=== PATIENT | male | born 1970 | race Caucasian/White ===

== ENCOUNTER 2018-03-17 08:56 | Inpatient (IN) ==
[2018-03-21] MEDS ORDERED: Senna/Docusate Sodium 8.6/50 MG Tablet ONE (22:33)
[2018-03-22] MEDS ORDERED: Bisacodyl 10 MG Supp RECTAL PRN (00:01)
[2018-03-22] MEDS ORDERED: Sod Chloride 0.9% Inj 1,000 ML IV.CONT PRN (00:01)
[2018-03-22] MEDS ORDERED: Albumin Human 25% Inj 100 ML IV.SIG PRN (00:01)
[2018-03-22] MEDS ORDERED: Gelatin 12 MM/7 MM Topical Foam TOPICAL PRN (00:01)
[2018-03-22] MEDS ORDERED: Acetaminophen 325 MG Tablet PO PRN (00:01)
[2018-03-22] MEDS ORDERED: Sod Chloride 0.9% Inj 1,000 ML OTHER PRN ×2 (00:01)
[2018-03-22] MEDS ORDERED: Heparin 10,000 UNITS/10 ML Vial (for IV use) IV.FLUSH PRN (00:01)
[2018-03-22 07:37] LABS: Activated Partial Thrombo Time 26.1 sec (24.3-30.1); Prothrombin Time 10.4 sec (9.8-11.6)
[2018-03-22 07:47] LABS: Alanine Aminotransferase 378 U/L (12-78); Albumin 1.9 g/dL (3.4-5.0); Anion Gap 12 meq/L (5-15); Aspartate Aminotransferase 447 U/L (15-37); Blood Urea Nitrogen 76 mg/dL (7-18); Calcium 7.8 mg/dL (8.5-10.1); Carbon Dioxide 30.2 meq/L (21.0-32.0); Chloride 95 meq/L (98-107); Glomerular Filtration Rate 5 mL/min (>89); Glucose,Random 101 mg/dL (74-106); Potassium 4.9 meq/L (3.5-5.1); Sodium 137 meq/L (136-145)
[2018-03-22 07:49] LABS: Alkaline Phosphatase 60 U/L (45-117); Total Protein 5.2 g/dL (6.4-8.2)
[2018-03-22 08:19] LABS: Baso # (Auto) 0.1 th/mm3 (0.0-0.2); Baso % (Auto) 0.4 % (0.0-2.0); Eos # (Auto) 0.5 th/mm3 (0.0-0.4); Eos % (Auto) 3.6 % (0.0-4.0); Hematocrit 45.4 % (39.0-51.0); Hemoglobin 15.2 gm/dL (13.0-17.0); Lymph # (Auto) 1.8 th/mm3 (1.0-4.8); Lymph % (Auto) 13.6 % (9.0-44.0); Mean Corpuscular HGB Conc 33.5 % (32.0-36.0); Mean Corpuscular Hemoglobin 29.1 pg (27.0-34.0); Mean Corpuscular Volume 86.7 fL (80.0-100.0); Mean Platelet Volume 8.4 fL (7.0-11.0); Mono # (Auto) 1.3 th/mm3 (0.0-0.9); Neut # (Auto) 9.6 th/mm3 (1.8-7.7); Neut % (Auto) 72.4 % (16.0-70.0); Platelet Count 253 th/mm3 (150-450); Red Blood Count 5.23 mil/mm3 (4.50-5.90); Red Cell Distribution Width 16.1 % (11.6-17.2); White Blood Count 13.2 th/mm3 (4.0-11.0)
[2018-03-22] MEDS: Sodium Bicarbonate 8.4% Inj 100 MEQ in Sodium Chloride 0.45 % Inj 900 ML IV.CONT SCH ×2 (08:35→20:13)
[2018-03-22] MEDS: Calcium Carbonate 500 MG Tablet PO SCH ×2 (09:24→20:11)
[2018-03-22] MEDS: Senna/Docusate Sodium 8.6/50 MG Tablet PO SCH ×2 (09:24→20:11)
--- NOTE | 2018-03-22 12:42 | P.PNIM ---
Subjective Interval history: Patient feels better status post dialysis. He will need further dialysis, but his potassium has corrected with dialysis. Creatinine is still 10. Bilateral lower extremity numbness and lower back pain remain a primary complaint. MRI from 03/17/2018 shows no acute impingement, so etiology is likely related to his renal failure and liver failure and drug abuse. Physical Exam Vital signs: Vital Signs 03/22/18 00:00 03/22/18 04:00 03/22/18 08:00 Temperature 98.1 F 98.1 F 98.1 F Pulse Rate 84 84 81 Respiratory Rate 18 18 22 Blood Pressure 157/82 H 156/87 H 164/87 H Pulse Oximetry 95 95 94 L Intake & Output 03/21/18 03/22/18 03/22/18 18:59 06:59 18:59 Weight 88.4 kg 87.9 kg - Routine HEENT Exam Comments: GENERAL: NAD, A&Ox3 HEAD: Normocephalic. NECK: Supple, trachea midline. No lymphadenopathy. EYES: No scleral icterus. No injection or drainage. CARDIOVASCULAR: Regular rate and rhythm without murmurs, gallops, or rubs. RESPIRATORY: Breath sounds equal bilaterally. No accessory muscle use. GASTROINTESTINAL: Abdomen soft, non-tender, nondistended. MUSCULOSKELETAL: No cyanosis, or edema. SKIN: Warm and dry. NEURO: No focal neurological deficitis. Results - Labs CBC & Chem 7: 03/22/18 06:59 03/22/18 06:59 Labs: Laboratory Results - last 24 hr 03/18/18 03/21/18 03/21/18 07:00 05:20 05:20 WBC 16.0 H RBC 5.43 Hgb 16.0 Hct 47.8 MCV 87.9 MCH 29.5 MCHC 33.5 RDW 16.0 Plt Count 267 MPV 8.3 Neut % (Auto) 79.6 H Lymph % (Auto) 10.4 [place] % (Auto) 8.1 H Eos % (Auto) 1.7 Baso % (Auto) 0.2 Neut # (Auto) 12.8 H Lymph # (Auto) 1.7 [place] # (Auto) 1.3 H Eos # (Auto) 0.3 Baso # (Auto) 0.0 CBC Comment DIFF FINAL WBC Differential Differential Comment PT INR APTT Sodium 132 L Potassium 5.3 H Chloride 93 L Carbon Dioxide 24.9 Anion Gap 14 BUN 79 H D Creatinine 10.14 H* D Estimated GFR 6 L Random Glucose 88 Calcium 7.5 L Magnesium 2.4 Total Bilirubin 0.4 AST 639 H ALT 566 H Alkaline Phosphatase 75 Ammonia Total Creatine Kinase Cancelled 53306 H CK-MB (CK-2) 18.8 H CK-MB (CK-2) % 0.1 Total Protein 5.4 L D Albumin 1.9 L 03/22/18 03/22/18 03/22/18 06:59 06:59 06:59 WBC RBC Hgb Hct MCV MCH MCHC RDW Plt Count MPV Neut % (Auto) Lymph % (Auto) [place] % (Auto) Eos % (Auto) Baso % (Auto) Neut # (Auto) Lymph # (Auto) [place] # (Auto) Eos # (Auto) Baso # (Auto) CBC Comment WBC Differential Differential Comment PT 10.4 INR 1.0 APTT 26.1 Sodium 137 Potassium 4.9 Chloride 95 L Carbon Dioxide 30.2 Anion Gap 12 BUN 76 H Creatinine 10.25 H* Estimated GFR 5 L Random Glucose 101 Calcium 7.8 L Magnesium Total Bilirubin 0.4 AST 447 H ALT 378 H Alkaline Phosphatase 60 Ammonia 30 Total Creatine Kinase CK-MB (CK-2) CK-MB (CK-2) % Total Protein 5.2 L Albumin 1.9 L 03/22/18 06:59 WBC 13.2 H RBC 5.23 Hgb 15.2 Hct 45.4 MCV 86.7 MCH 29.1 MCHC 33.5 RDW 16.1 Plt Count 253 MPV 8.4 Neut % (Auto) 72.4 H Lymph % (Auto) 13.6 [place] % (Auto) 10.0 H Eos % (Auto) 3.6 Baso % (Auto) 0.4 Neut # (Auto) 9.6 H Lymph # (Auto) 1.8 [place] # (Auto) 1.3 H Eos # (Auto) 0.5 H Baso # (Auto) 0.1 CBC Comment WBC Differential . Differential Comment Auto diff final PT INR APTT Sodium Potassium Chloride Carbon Dioxide Anion Gap BUN Creatinine Estimated GFR Random Glucose Calcium Magnesium Total Bilirubin AST ALT Alkaline Phosphatase [place]mon[place] Total Creatine Kinase CK-MB (CK-2) CK-MB (CK-2) % Total Protein Albumin Assessment and Plan - Plan 47-year-old male admitted secondary to acute renal failure and acute liver failure Dialysis has been initiated. Continue dialysis and watch renal function. Continue to monitor liver function which has improved. Continue to monitor kidney function. Acute renal failure Avoid nephrotoxins Continue to monitor renal function Nephrology following HTN suspected Patient declines Coates catheter Bladder scanning twice daily May need Dialysis Toxic encephalopathy/drug overdose Polysubstance abuse Drug abuse may be contributory to the patient's liver and renal failure Encephalopathy has resolved Cessation recommended Transaminitis Hepatitis C Liver failure Follow LFTs Bilateral lower extremity weakness May be related to liver and renal failure May be related to drug abuse MRI of lumbar spine shows no acute pathology to explain symptoms Continue physical therapy DVT prophylaxis SCDs
--- NOTE | 2018-03-22 13:22 | P.PNNP ---
Subjective Interval history: Denies any shortness of breath. Bilateral lower extremity pain in feet. <Olga Villatoro - Last Filed: 03/22/18 13:16> Physical Exam Vital signs: Vital Signs 03/22/18 00:00 03/22/18 04:00 03/22/18 08:00 Temperature 98.1 F 98.1 F 98.1 F Pulse Rate 84 84 81 Respiratory Rate 18 18 22 Blood Pressure 157/82 H 156/87 H 164/87 H Pulse Oximetry 95 95 94 L 03/22/18 12:00 Temperature 98 F Pulse Rate 83 Respiratory Rate 20 Blood Pressure 163/93 H Pulse Oximetry 95 Intake & Output 03/21/18 03/22/18 03/22/18 18:59 06:59 18:59 Weight 88.4 kg 87.9 kg - Constitutional no acute distress - Routine HEENT Exam Head: Present: normocephalic ENT: Present: mucous membranes moist - Routine Neck Exam Present: supple. Absent: JVD - Routine Respiratory Exam Present: CTA bilaterally - Routine Cardiovascular Exam Present: RRR - Routine Abdominal Exam Present: soft, normoactive bowel sounds - Routine Extremities Exam Present: edema, pulses intact. Absent: Brian's sign - Routine Skin Exam Present: intact - Routine Neurological Exam Present: alert, oriented X3 - Detailed Neurological Exam: Coma Scale Eye Opening: Spontaneous <Olga Villatoro - Last Filed: 03/22/18 13:16> Vital signs: Vital Signs 03/22/18 00:00 03/22/18 04:00 03/22/18 08:00 Temperature 98.1 F 98.1 F 98.1 F Pulse Rate 84 84 81 Respiratory Rate 18 18 22 Blood Pressure 157/82 H 156/87 H 164/87 H Pulse Oximetry 95 95 94 L 03/22/18 12:00 Temperature 98 F Pulse Rate 83 Respiratory Rate 20 Blood Pressure 163/93 H Pulse Oximetry 95 Intake & Output 03/21/18 03/22/18 03/22/18 18:59 06:59 18:59 Weight 88.4 kg 87.9 kg <Amira Stewart - Last Filed: 03/22/18 16:43> Assessment and Plan - Assessment (1) Acute kidney injury Code(s): N17.9 - Acute kidney failure, unspecified Status: Acute Plan: Patient has acute renal failure along with liver failure and has not been passing any urine CPKs are elevated Has acute tubular necrosis with Rhabdomyolysis Ultrasound showed echogenic kidneys Creatinine: 2.76 ->4.09->10.14 ->10.25 Continue IVF with rhabdomyolysis Hemodialysis started yesterday tolerated well Hyperkalemia has improved Right IJ vas cath Next hemodialysis planned for tomorrow will remove fluid as tolerated. <Olga Villatoro - Last Filed: 03/22/18 13:16> - Assessment (1) Acute kidney injury Code(s): N17.9 - Acute kidney failure, unspecified Status: Acute - Plan Patient seen and examined, agree with above. HD was started yesterday. Non oliguric, still has elevated Creatinine. HD again in AM. <Amira Stewart - Last Filed: 03/22/18 16:43>
[2018-03-23 07:13] LABS: Baso # (Auto) 0.1 th/mm3 (0.0-0.2); Baso % (Auto) 0.4 % (0.0-2.0); Eos # (Auto) 0.4 th/mm3 (0.0-0.4); Eos % (Auto) 2.5 % (0.0-4.0); Hemoglobin 14.9 gm/dL (13.0-17.0); Lymph # (Auto) 1.7 th/mm3 (1.0-4.8); Lymph % (Auto) 10.6 % (9.0-44.0); Mean Corpuscular HGB Conc 33.8 % (32.0-36.0); Mean Corpuscular Hemoglobin 29.6 pg (27.0-34.0); Mean Corpuscular Volume 87.4 fL (80.0-100.0); Mean Platelet Volume 8.5 fL (7.0-11.0); Mono # (Auto) 1.3 th/mm3 (0.0-0.9); Mono % (Auto) 8.3 % (0.0-8.0); Neut # (Auto) 12.6 th/mm3 (1.8-7.7); Neut % (Auto) 78.2 % (16.0-70.0); Platelet Count 263 th/mm3 (150-450); Red Blood Count 5.03 mil/mm3 (4.50-5.90); Red Cell Distribution Width 16.2 % (11.6-17.2); White Blood Count 16.1 th/mm3 (4.0-11.0)
[2018-03-23 09:12] LABS: Alanine Aminotransferase 339 U/L (12-78); Albumin 1.9 g/dL (3.4-5.0); Alkaline Phosphatase 54 U/L (45-117); Anion Gap 12 meq/L (5-15); Aspartate Aminotransferase 431 U/L (15-37); Blood Urea Nitrogen 94 mg/dL (7-18); Calcium 8.3 mg/dL (8.5-10.1); Carbon Dioxide 28.8 meq/L (21.0-32.0); Chloride 95 meq/L (98-107); Glomerular Filtration Rate 5 mL/min (>89); Glucose,Random 88 mg/dL (74-106); Potassium 5.7 meq/L (3.5-5.1); Sodium 136 meq/L (136-145); Total Protein 5.4 g/dL (6.4-8.2)
--- NOTE | 2018-03-23 11:51 | P.PNIM ---
Subjective Interval history: No new complaints from the patient. Creatinine has increased to 11.7. Potassium is up at 5.7. Liver function continues to improve. Physical Exam Vital signs: Vital Signs 03/22/18 12:00 03/22/18 16:00 03/22/18 20:00 Temperature 98 F 99.1 F 98.4 F Pulse Rate 83 81 94 H Respiratory Rate 20 20 18 Blood Pressure 163/93 H 174/88 H 162/87 H Pulse Oximetry 95 95 95 03/23/18 00:00 03/23/18 04:00 03/23/18 08:00 Temperature 98.0 F 97.8 F 97.3 F L Pulse Rate 80 82 79 Respiratory Rate 16 18 19 Blood Pressure 164/83 H 170/80 H 153/78 H Pulse Oximetry 95 95 95 Intake & Output 03/22/18 03/23/18 03/23/18 18:59 06:59 18:59 Intake Total 50 / 50 480 / 480 Output Total 100 / 100 Balance 50 / 50 380 / 380 Weight 88 kg Intake: Oral 480 / 480 Other 50 / 50 Output: Urine Amount (Catheter) 100 / 100 Indwelling Urethral Catheter 100 / 100 Other: Other Intake Source Saline Solution - Routine HEENT Exam Comments: GENERAL: NAD, A&Ox3 HEAD: Normocephalic. NECK: Supple, trachea midline. No lymphadenopathy. EYES: No scleral icterus. No injection or drainage. CARDIOVASCULAR: Regular rate and rhythm without murmurs, gallops, or rubs. RESPIRATORY: Breath sounds equal bilaterally. No accessory muscle use. GASTROINTESTINAL: Abdomen soft, non-tender, nondistended. MUSCULOSKELETAL: No cyanosis, or edema. SKIN: Warm and dry. NEURO: Bilateral lower extremity focal neurological deficitis including numbness and weakness. - Urinary Catheter Management Indwelling Urethral Catheter Cath placed during this visit: yes Urethral indwelling: No Reason for continuing: Not indwelling catheter Insertion date: 03/22/18 Insertion time: 00:00 Results - Labs CBC & Chem 7: 03/23/18 05:46 03/23/18 05:46 Laboratory Results - last 24 hr 03/23/18 03/23/18 05:46 05:46 WBC 16.1 H RBC 5.03 Hgb 14.9 Hct 44.0 MCV 87.4 MCH 29.6 MCHC 33.8 RDW 16.2 Plt Count 263 MPV 8.5 Neut % (Auto) 78.2 H Lymph % (Auto) 10.6 [place] % (Auto) 8.3 H Eos % (Auto) 2.5 Baso % (Auto) 0.4 Neut # (Auto) 12.6 H Lymph # (Auto) 1.7 [place] # (Auto) 1.3 H Eos # (Auto) 0.4 Baso # (Auto) 0.1 WBC Differential . Differential Comment Auto diff final Sodium 136 Potassium 5.7 H D Chloride 95 L Carbon Dioxide 28.8 Anion Gap 12 BUN 94 H Creatinine 11.70 H* D Estimated GFR 5 L Random Glucose 88 Calcium 8.3 L Total Bilirubin 0.4 AST 431 H ALT 339 H Alkaline Phosphatase 54 Total Protein 5.4 L Albumin 1.9 L Assessment and Plan - Plan 47-year-old male admitted secondary to acute renal failure and acute liver failure Dialysis to continue. Monitor renal function. Monitor potassium levels. Labs ordered for further monitoring. Continue to monitor liver function which has improved. Continue to monitor kidney function. Acute renal failure Avoid nephrotoxins Continue to monitor renal function Nephrology following HTN suspected Patient declines Coates catheter Bladder scanning twice daily May need Dialysis Toxic encephalopathy/drug overdose Polysubstance abuse Drug abuse may be contributory to the patient's liver and renal failure Encephalopathy has resolved Cessation recommended Transaminitis Hepatitis C Liver failure Improving through time Follow LFTs Bilateral lower extremity weakness May be related to liver and renal failure May be related to drug abuse MRI of lumbar spine shows no acute pathology to explain symptoms Continue physical therapy DVT prophylaxis SCDs
--- NOTE | 2018-03-23 12:14 | P.PNNP ---
Subjective Interval history: Complaining of neuropathy in feet. Creatinine is elevated at 11.7 and potassium of 5.7. Seen during hemodialysis. <Olga Villatoro - Last Filed: 03/23/18 12:08> Physical Exam Vital signs: Vital Signs 03/22/18 16:00 03/22/18 20:00 03/23/18 00:00 Temperature 99.1 F 98.4 F 98.0 F Pulse Rate 81 94 H 80 Respiratory Rate 20 18 16 Blood Pressure 174/88 H 162/87 H 164/83 H Pulse Oximetry 95 95 95 03/23/18 04:00 03/23/18 08:00 Temperature 97.8 F 97.3 F L Pulse Rate 82 79 Respiratory Rate 18 19 Blood Pressure 170/80 H 153/78 H Pulse Oximetry 95 95 Intake & Output 03/22/18 03/23/18 03/23/18 18:59 06:59 18:59 Intake Total 50 / 50 480 / 480 Output Total 100 / 100 Balance 50 / 50 380 / 380 Weight 88 kg Intake: Oral 480 / 480 Other 50 / 50 Output: Urine Amount (Catheter) 100 / 100 Indwelling Urethral Catheter 100 / 100 Other: Other Intake Source Saline Solution - Constitutional no acute distress - Routine HEENT Exam Head: Present: normocephalic - Routine Neck Exam Present: supple. Absent: JVD - Routine Respiratory Exam Present: decreased breath sounds. Absent: rales, rhonchi - Routine Cardiovascular Exam Present: RRR - Routine Abdominal Exam Present: soft, normoactive bowel sounds - Routine Extremities Exam Present: edema - Routine Skin Exam Present: intact - Routine Neurological Exam Present: alert, oriented X3 - Detailed Neurological Exam: Coma Scale Eye Opening: Spontaneous - Routine Psychiatric Exam Present: normal affect, cooperative - Urinary Catheter Management Indwelling Urethral Catheter Cath placed during this visit: yes Urethral indwelling: No Insertion date: 03/22/18 Insertion time: 00:00 <Olga Villatoro - Last Filed: 03/23/18 12:08> Vital signs: Vital Signs 03/23/18 00:00 03/23/18 04:00 03/23/18 08:00 Temperature 98.0 F 97.8 F 97.8 F Pulse Rate 80 82 93 H Respiratory Rate 16 18 19 Blood Pressure 164/83 H 170/80 H 168/88 H Pulse Oximetry 95 95 94 L 03/23/18 12:00 03/23/18 16:00 Temperature 97.2 F L 97.1 F L Pulse Rate 78 80 Respiratory Rate 18 18 Blood Pressure 142/76 H 140/74 Pulse Oximetry 96 96 Intake & Output 03/23/18 03/23/18 03/24/18 06:59 18:59 06:59 Intake Total 480 / 480 200 / 200 Output Total 100 / 100 Balance 380 / 380 200 / 200 Weight 88 kg Intake: Oral 480 / 480 Other 200 / 200 Output: Urine Amount (Catheter) 100 / 100 Indwelling Urethral Catheter 100 / 100 - Urinary Catheter Management Indwelling Urethral Catheter Cath placed during this visit: no <Amira Stewart - Last Filed: 03/23/18 22:23> Assessment and Plan - Assessment (1) Acute kidney injury Code(s): N17.9 - Acute kidney failure, unspecified Status: Acute Plan: Patient has acute renal failure along with liver failure and has not been passing any urine CPKs are elevated Has acute tubular necrosis with Rhabdomyolysis Ultrasound showed echogenic kidneys Creatinine: 2.76 ->4.09->10.14 ->10.25 ->11.7 Urinary output has decreased and at 100ml/24 hours Continue IVF with rhabdomyolysis Hemodialysis started on 03/21 Seen during hemodialysis will remove fluid as tolerated Will order gabapentin for neuropathy Hypertensive will add hydralazine . - Plan . <Olga Villatoro - Last Filed: 03/23/18 12:08> - Assessment (1) Acute kidney injury Code(s): N17.9 - Acute kidney failure, unspecified Status: Acute - Attending Attestation Patient seen and examined, agree with above. Hydralazine added for the BP. Watch for renal recovery. <Amira Stewart - Last Filed: 03/23/18 22:23>
[2018-03-23] MEDS: Calcium Carbonate 500 MG Tablet PO SCH ×2 (13:27→23:51)
[2018-03-23] MEDS: Senna/Docusate Sodium 8.6/50 MG Tablet PO SCH ×2 (15:15→23:53)
[2018-03-23] MEDS: Gabapentin 100 MG Capsule PO SCH ×2 (17:38→17:39)
[2018-03-23] MEDS: hydrALAZINE 25 MG Tablet PO SCH ×2 (17:38→17:39)
[2018-03-23] MEDS: Sodium Bicarbonate 8.4% Inj 100 MEQ in Sodium Chloride 0.45 % Inj 900 ML IV.CONT SCH (23:46)
[2018-03-24] MEDS: Calcium Carbonate 500 MG Tablet PO SCH ×2 (08:21→21:15)
[2018-03-24] MEDS: hydrALAZINE 25 MG Tablet PO SCH ×3 (08:21→18:29)
[2018-03-24] MEDS: Gabapentin 100 MG Capsule PO SCH ×3 (08:21→18:29)
[2018-03-24] MEDS: Senna/Docusate Sodium 8.6/50 MG Tablet PO SCH ×2 (08:22→21:11)
[2018-03-24 10:05] LABS: Anion Gap 12 meq/L (5-15); Aspartate Aminotransferase 290 U/L (15-37); Blood Urea Nitrogen 86 mg/dL (7-18); Calcium 8.7 mg/dL (8.5-10.1); Carbon Dioxide 28.6 meq/L (21.0-32.0); Chloride 95 meq/L (98-107); Glomerular Filtration Rate 5 mL/min (>89); Glucose,Random 86 mg/dL (74-106); Potassium 5.6 meq/L (3.5-5.1); Sodium 136 meq/L (136-145)
[2018-03-24 10:06] LABS: Alanine Aminotransferase 273 U/L (12-78)
[2018-03-24 10:09] LABS: Alkaline Phosphatase 47 U/L (45-117); Total Protein 5.3 g/dL (6.4-8.2)
[2018-03-24 10:51] LABS: Baso % (Auto) 0.3 % (0.0-2.0); Eos # (Auto) 0.6 th/mm3 (0.0-0.4); Eos % (Auto) 4.2 % (0.0-4.0); Hematocrit 41.1 % (39.0-51.0); Hemoglobin 13.7 gm/dL (13.0-17.0); Lymph # (Auto) 1.9 th/mm3 (1.0-4.8); Mean Corpuscular HGB Conc 33.4 % (32.0-36.0); Mean Corpuscular Hemoglobin 29.3 pg (27.0-34.0); Mean Corpuscular Volume 87.8 fL (80.0-100.0); Mean Platelet Volume 8.5 fL (7.0-11.0); Mono # (Auto) 1.2 th/mm3 (0.0-0.9); Neut % (Auto) 72.5 % (16.0-70.0); Platelet Count 239 th/mm3 (150-450); Red Blood Count 4.68 mil/mm3 (4.50-5.90); White Blood Count 13.8 th/mm3 (4.0-11.0)
[2018-03-24] MEDS ORDERED: Sodium Polystyrene Sulfonate/Sorbitol Liq 15 GM/60 ML UDC PO ONE (11:30)
--- NOTE | 2018-03-24 12:51 | P.PN ---
Subjective Interval history: Follow up MARY and acute liver failure. Patient seen and examined, lying in bed in [place]. Does complain of overall generalized weakness. Eating well with no acute events overnight,. no abdominal pain or nausea/vomiting. Afebrile. VSS. Checking CPK level today. Physical Exam Vital signs: Vital Signs 03/23/18 16:00 03/23/18 20:00 03/23/18 23:52 Temperature 97.1 F L Pulse Rate 80 Respiratory Rate 18 18 18 Blood Pressure 140/74 Pulse Oximetry 96 03/24/18 00:00 03/24/18 04:00 03/24/18 05:08 Temperature 97.1 F L 97.5 F L Pulse Rate 78 87 Respiratory Rate 16 16 18 Blood Pressure 162/84 H 173/87 H Pulse Oximetry 95 94 L 03/24/18 08:00 Temperature 97.3 F L Pulse Rate 78 Respiratory Rate 18 Blood Pressure 155/81 H Pulse Oximetry 95 Intake & Output 03/23/18 03/24/18 03/24/18 18:59 06:59 18:59 Intake Total 1200 / 1200 960 / 960 Output Total 50 / 50 Balance 1200 / 1200 910 / 910 Weight 89.2 kg Intake: IV 1000 / 1000 Sodium Bicarbonate 8.4% Inj 100 1000 / 1000 MEQ In 1/2 Normal Saline Inj 900 ML @ 50 mls/hr IV.CONT . Q20H LOWELL Rx#:[id number] Oral 960 / 960 Other 200 / 200 Output: Urine Amount (Catheter) 50 / 50 Indwelling Urethral Catheter 50 / 50 Other: Date of Last Bowel Movement 03/23/18 # Bowel Movements 1 - Constitutional no acute distress - Routine HEENT Exam Head: Present: normocephalic Eye: Present: EOMI, PERRL ENT: Present: mucous membranes moist - Routine Neck Exam Present: supple, full ROM - Routine Cardiovascular Exam Present: RRR - Routine Abdominal Exam Present: soft, normoactive bowel sounds - Routine Skin Exam Present: intact - Routine Neurological Exam Present: alert, oriented X3 - Detailed Neurological Exam: Coma Scale Eye Opening: Spontaneous - Routine Psychiatric Exam Present: normal affect - Urinary Catheter Management Indwelling Urethral Catheter Cath placed during this visit: yes Urethral indwelling: No Reason for continuing: Acute urinary retention Insertion date: 03/22/18 Insertion time: 00:00 Results - Labs CBC & Chem 7: 03/24/18 08:29 03/24/18 08:29 Laboratory Results - last 24 hr 03/24/18 03/24/18 08:29 08:29 WBC 13.8 H RBC 4.68 Hgb 13.7 Hct 41.1 MCV 87.8 MCH 29.3 MCHC 33.4 RDW 16.0 Plt Count 239 MPV 8.5 Neut % (Auto) 72.5 H Lymph % (Auto) 14.0 [place] % (Auto) 9.0 H Eos % (Auto) 4.2 H Baso % (Auto) 0.3 Neut # (Auto) 10.0 H Lymph # (Auto) 1.9 [place] # (Auto) 1.2 H Eos # (Auto) 0.6 H Baso # (Auto) 0.0 WBC Differential . Differential Comment Auto diff final Sodium 136 Potassium 5.6 H Chloride 95 L Carbon Dioxide 28.6 Anion Gap 12 BUN 86 H Creatinine 10.79 H* Estimated GFR 5 L Random Glucose 86 Calcium 8.7 Total Bilirubin 0.4 AST 290 H ALT 273 H Alkaline Phosphatase 47 Total Protein 5.3 L Albumin 2.0 L Assessment and Plan - Plan 47-year-old male admitted secondary to acute renal failure and acute liver failure Dialysis to continue,. M/W/F. Nephrology following. Monitor renal function. Monitor potassium levels, elevated today, given Kayexalate. Continue to monitor liver function which has improved. Acute renal failure Avoid nephrotoxins Continue to monitor renal function Nephrology following HTN suspected Continue Coates catheter, attempt void trial in the next couple days depending on renal function. Toxic encephalopathy/drug overdose Polysubstance abuse Drug abuse may be contributory to the patient's liver and renal failure Encephalopathy has resolved Cessation recommended Transaminitis Hepatitis C Liver failure Improving through time Follow LFTs Bilateral lower extremity weakness May be related to liver and renal failure May be related to drug abuse MRI of lumbar spine shows no acute pathology to explain symptoms Continue physical therapy DVT prophylaxis SCDs
--- NOTE | 2018-03-24 14:49 | P.PN ---
Subjective Interval history: Patient is alert, no SOB, has heaviness in legs. Physical Exam Vital signs: Vital Signs 03/23/18 16:00 03/23/18 20:00 03/23/18 23:52 Temperature 97.1 F L Pulse Rate 80 Respiratory Rate 18 18 18 Blood Pressure 140/74 Pulse Oximetry 96 03/24/18 00:00 03/24/18 04:00 03/24/18 05:08 Temperature 97.1 F L 97.5 F L Pulse Rate 78 87 Respiratory Rate 16 16 18 Blood Pressure 162/84 H 173/87 H Pulse Oximetry 95 94 L 03/24/18 08:00 03/24/18 12:00 Temperature 97.3 F L 97.8 F Pulse Rate 78 88 Respiratory Rate 18 18 Blood Pressure 155/81 H 183/92 H Pulse Oximetry 95 95 Intake & Output 03/23/18 03/24/18 03/24/18 18:59 06:59 18:59 Intake Total 1200 / 1200 960 / 960 Output Total 50 / 50 Balance 1200 / 1200 910 / 910 Weight 89.2 kg Intake: IV 1000 / 1000 Sodium Bicarbonate 8.4% Inj 100 1000 / 1000 MEQ In 1/2 Normal Saline Inj 900 ML @ 50 mls/hr IV.CONT . Q20H LOWELL Rx#:[id number] Oral 960 / 960 Other 200 / 200 Output: Urine Amount (Catheter) 50 / 50 Indwelling Urethral Catheter 50 / 50 Other: Date of Last Bowel Movement 03/23/18 # Bowel Movements 1 Narrative: Patient is alert, no SOB, has increase leg swelling. - Constitutional no acute distress - Routine HEENT Exam Head: Present: normocephalic - Routine Neck Exam Present: supple - Routine Respiratory Exam Present: decreased breath sounds, CTA bilaterally, rhonchi - Routine Cardiovascular Exam Present: S1, S2 - Routine Abdominal Exam Present: soft, normoactive bowel sounds, distended - Routine Extremities Exam Present: edema - Routine Neurological Exam Present: alert, oriented X3 - Urinary Catheter Management Indwelling Urethral Catheter Cath placed during this visit: yes Urethral indwelling: No Reason for continuing: Acute urinary retention Insertion date: 03/22/18 Insertion time: 00:00 Results - Labs CBC & Chem 7: 03/24/18 08:29 03/24/18 08:29 Laboratory Results - last 24 hr 03/24/18 03/24/18 08:29 08:29 WBC 13.8 H RBC 4.68 Hgb 13.7 Hct 41.1 MCV 87.8 MCH 29.3 MCHC 33.4 RDW 16.0 Plt Count 239 MPV 8.5 Neut % (Auto) 72.5 H Lymph % (Auto) 14.0 [place] % (Auto) 9.0 H Eos % (Auto) 4.2 H Baso % (Auto) 0.3 Neut # (Auto) 10.0 H Lymph # (Auto) 1.9 [place] # (Auto) 1.2 H Eos # (Auto) 0.6 H Baso # (Auto) 0.0 WBC Differential . Differential Comment Auto diff final Sodium 136 Potassium 5.6 H Chloride 95 L Carbon Dioxide 28.6 Anion Gap 12 BUN 86 H Creatinine 10.79 H* Estimated GFR 5 L Random Glucose 86 Calcium 8.7 Total Bilirubin 0.4 AST 290 H ALT 273 H Alkaline Phosphatase 47 Total Protein 5.3 L Albumin 2.0 L Assessment and Plan - Assessment (1) Acute kidney injury Code(s): N17.9 - Acute kidney failure, unspecified Status: Acute - Attending Attestation 1. Acute Kidney injury, with possible Chronic kidney disease. Patient has acute renal failure along with liver failure and has not been passing any urine CPKs are elevated Has acute tubular necrosis with Rhabdomyolysis Ultrasound showed echogenic kidneys Creatinine: 2.76 ->4.09->10.14 ->10.25 ->11.7 Urinary output has decreased and at 100ml/24 hours Continue IVF with rhabdomyolysis Hemodialysis started on 03/21 On gabapentin for neuropathy. Send serology. No improvement in renal function. HD will be in AM. Kayexalate given. Hypertension. On hydralazine, will follow.
[2018-03-24 23:03] LABS: Creatine Kinase MB 3.2 ng/mL (0.5-3.6)
[2018-03-25 08:32] LABS: Bacteria,Urine Occasional /hpf; Bilirubin,Urine Negative (Negative); Clarity,Urine Hazy (Clear); Color,Urine Yellow (Yellw/Straw); Glucose,Urine (UA) 50 mg/dL (Negative); Leukocyte Esterase,Urine Large (Negative); Nitrite,Urine Negative (Negative); Specific Gravity,Urine 1.009 (1.002-1.035)
[2018-03-25 11:24] LABS: Complement C3 125 mg/dL (90-180)
[2018-03-25] MEDS: Heparin 10,000 UNITS/10 ML Vial (for IV use) OTHER PRN (11:45)
[2018-03-25] MEDS: hydrALAZINE 25 MG Tablet PO SCH ×2 (13:16→18:29)
[2018-03-25] MEDS: Gabapentin 100 MG Capsule PO SCH ×3 (13:16→18:28)
[2018-03-25] MEDS: Senna/Docusate Sodium 8.6/50 MG Tablet PO SCH ×2 (13:16→22:28)
[2018-03-25] MEDS: Calcium Carbonate 500 MG Tablet PO SCH ×2 (13:17→22:27)
--- NOTE | 2018-03-25 14:29 | P.PN ---
Subjective Interval history: Patient is alert, complaining of generalized body pain. Physical Exam Vital signs: Vital Signs 03/24/18 16:00 03/24/18 21:09 03/25/18 00:00 Temperature 97.2 F L 98.8 F 98 F Pulse Rate 82 83 Respiratory Rate 18 16 19 Blood Pressure 164/88 H 168/81 H 162/69 H Pulse Oximetry 96 98 94 L 03/25/18 05:54 Temperature 97.8 F Pulse Rate 78 Respiratory Rate 18 Blood Pressure 132/72 Pulse Oximetry Intake & Output 03/24/18 03/25/18 03/25/18 18:59 06:59 18:59 Intake Total 480 / 480 1000 / 1000 Output Total 50 / 50 300 / 300 3000 / 3000 Balance 430 / 430 700 / 700 -3000 / -3000 Weight 92.7 kg Intake: IV 1000 / 1000 Sodium Bicarbonate 8.4% Inj 100 1000 / 1000 MEQ In 1/2 Normal Saline Inj 900 ML @ 50 mls/hr IV.CONT . Q20H LOWELL Rx#:[id number] Oral 480 / 480 Output: Urine 50 / 50 Hemodialysis Amount 3000 / 3000 Urine Amount (Catheter) 300 / 300 Indwelling Urethral Catheter 300 / 300 Other: # Bowel Movements 2 - Constitutional no acute distress - Routine HEENT Exam Head: Present: normocephalic - Routine Neck Exam Present: supple - Routine Cardiovascular Exam Present: RRR, S1, S2 - Routine Abdominal Exam Present: soft - Routine Extremities Exam Present: edema - Routine Neurological Exam Present: alert, oriented X3 - Detailed Neurological Exam: Coma Scale Verbal Response: Oriented - Urinary Catheter Management Indwelling Urethral Catheter Cath placed during this visit: yes Urethral indwelling: No Reason for continuing: Acute urinary retention Insertion date: 03/22/18 Insertion time: 00:00 Results - Labs CBC & Chem 7: 03/24/18 08:29 03/24/18 08:29 Laboratory Results - last 24 hr 03/24/18 03/24/18 03/24/18 18:35 18:35 21:02 Total Creatine Kinase 7705 H CK-MB (CK-2) 3.2 CK-MB (CK-2) % 0.0 Urine Color Yellow Urine Clarity Hazy H Urine pH 8.0 Ur Specific [place] 1.009 Urine Protein 100 H Urine Glucose (UA) 50 Urine Ketones Negative Urine Occult Blood Large H Urine Nitrate Negative Urine Bilirubin Negative Urine Urobilinogen Less than 2 Ur Leukocyte Esterase Large H Urine RBC 37 H Urine WBC 14 H Urine Bacteria Occasional H Micro UA Comment Cath Urine Eosinophils None seen Complement C3 Complement C4 03/24/18 21:02 Total Creatine Kinase CK-MB (CK-2) CK-MB (CK-2) % Urine Color Urine Clarity Urine pH Ur Specific [place] Urine Protein Urine Glucose (UA) Urine Ketones Urine Occult Blood Urine Nitrate Urine Bilirubin Urine Urobilinogen Ur Leukocyte Esterase Urine RBC Urine WBC Urine Bacteria Micro UA Comment Urine Eosinophils Complement C3 125 Complement C4 20 Assessment and Plan - Assessment (1) Acute kidney injury Code(s): N17.9 - Acute kidney failure, unspecified Status: Acute - Plan 1. Acute Kidney injury, with possible Chronic kidney disease. Patient has acute renal failure along with liver failure and has not been passing any urine CPKs are elevated Has acute tubular necrosis with Rhabdomyolysis Ultrasound showed echogenic kidneys Creatinine: 2.76 ->4.09->10.14 ->10.25 ->11.7 Urinary output is low. Continue IVF with rhabdomyolysis Hemodialysis started on 03/21 On gabapentin for neuropathy. Send serology. No improvement in renal function. HD done in AM. Hypertension. On hydralazine, will follow.
--- NOTE | 2018-03-25 16:11 | P.PN ---
Subjective Interval history: Follow-up acute renal injury requiring hemodialysis March 25, 2018-patient seen and examined. He had hemodialysis today. Complains of generalized pain to his bilateral lower extremities and requesting some adjustment in his narcotics. Physical Exam Vital signs: Vital Signs 03/24/18 21:09 03/25/18 00:00 03/25/18 05:54 Temperature 98.8 F 98 F 97.8 F Pulse Rate 83 78 Respiratory Rate 16 19 18 Blood Pressure 168/81 H 162/69 H 132/72 Pulse Oximetry 98 94 L Intake & Output 03/24/18 03/25/18 03/25/18 18:59 06:59 18:59 Intake Total 480 / 480 1000 / 1000 Output Total 50 / 50 300 / 300 3000 / 3000 Balance 430 / 430 700 / 700 -3000 / -3000 Weight 92.7 kg Intake: IV 1000 / 1000 Sodium Bicarbonate 8.4% Inj 100 1000 / 1000 MEQ In 1/2 Normal Saline Inj 900 ML @ 50 mls/hr IV.CONT . Q20H [facility] Rx#:[id number] Oral 480 / 480 Output: Urine 50 / 50 Hemodialysis Amount 3000 / 3000 Urine Amount (Catheter) 300 / 300 Indwelling Urethral Catheter 300 / 300 Other: # Bowel Movements 2 Narrative: GENERAL: NAD SKIN: Warm and dry. HEAD: Normocephalic. EYES: No scleral icterus. No injection or drainage. NECK: Supple, trachea midline. No JVD or lymphadenopathy. CARDIOVASCULAR: Regular rate and rhythm without murmurs, gallops, or rubs. RESPIRATORY: Breath sounds equal bilaterally. No accessory muscle use. GASTROINTESTINAL: Abdomen soft, non-tender, nondistended. MUSCULOSKELETAL: No cyanosis, or edema. BACK: Nontender without obvious deformity. No CVA tenderness. - Urinary Catheter Management Indwelling Urethral Catheter Cath placed during this visit: yes Urethral indwelling: No Reason for continuing: Acute urinary retention Insertion date: 03/22/18 Insertion time: 00:00 Results - Labs CBC & Chem 7: 03/24/18 08:29 03/24/18 08:29 Laboratory Results - last 24 hr 03/24/18 03/24/18 03/24/18 18:35 18:35 21:02 Total Creatine Kinase 7705 H CK-MB (CK-2) 3.2 CK-MB (CK-2) % 0.0 Urine Color Yellow Urine Clarity Hazy H Urine pH 8.0 Ur Specific Henry 1.009 Urine Protein 100 H Urine Glucose (UA) 50 Urine Ketones Negative Urine Occult Blood Large H Urine Nitrate Negative Urine Bilirubin Negative Urine Urobilinogen Less than 2 Ur Leukocyte Esterase Large H Urine RBC 37 H Urine WBC 14 H Urine Bacteria Occasional H Micro UA Comment Cath Urine Eosinophils None seen Complement C3 Complement C4 03/24/18 21:02 Total Creatine Kinase CK-MB (CK-2) CK-MB (CK-2) % Urine Color Urine Clarity Urine pH Ur Specific Henry Urine Protein Urine Glucose (UA) Urine Ketones Urine Occult Blood Urine Nitrate Urine Bilirubin Urine Urobilinogen Ur Leukocyte Esterase Urine RBC Urine WBC Urine Bacteria Micro UA Comment Urine Eosinophils Complement C3 125 Complement C4 20 Assessment and Plan - Plan 47-year-old male admitted secondary to acute renal failure and acute liver failure Dialysis to continue,. M/W/F. Nephrology following. Acute renal failure Avoid nephrotoxins Continue to monitor renal function Nephrology ff Toxic encephalopathy/drug overdose-resolved Polysubstance abuse Cessation recommended Transaminitis Hepatitis C Liver failure Improving through time Follow LFTs Bilateral lower extremity weakness MRI of lumbar spine shows no acute pathology to explain symptoms Continue physical therapy DVT prophylaxis SCDs
[2018-03-25] MEDS: Sodium Bicarbonate 8.4% Inj 100 MEQ in Sodium Chloride 0.45 % Inj 900 ML IV.CONT SCH ×3 (22:30)
[2018-03-26] MEDS: Sodium Bicarbonate 8.4% Inj 100 MEQ in Sodium Chloride 0.45 % Inj 900 ML IV.CONT SCH (05:31)
[2018-03-26] MEDS: hydrALAZINE 25 MG Tablet PO SCH ×3 (10:18→17:31)
[2018-03-26] MEDS: Calcium Carbonate 500 MG Tablet PO SCH ×2 (10:18→23:18)
[2018-03-26] MEDS: Senna/Docusate Sodium 8.6/50 MG Tablet PO SCH ×2 (10:19→23:20)
[2018-03-26] MEDS: Gabapentin 100 MG Capsule PO SCH ×3 (10:20→17:31)
--- NOTE | 2018-03-26 11:33 | P.PN ---
Subjective Interval history: Follow-up acute renal injury requiring hemodialysis March 25, 2018-patient seen and examined. He had hemodialysis today. Complains of generalized pain to his bilateral lower extremities and requesting some adjustment in his narcotics. March 26, 2018-patient seen and examined, states he still has bilateral lower extremity pain otherwise no other issues and afebrile. Physical Exam Vital signs: Vital Signs 03/25/18 12:00 03/25/18 16:00 03/25/18 18:19 Temperature 98.9 F 98.2 F Pulse Rate 91 H 74 Respiratory Rate 20 20 Blood Pressure 169/86 H 183/86 H Pulse Oximetry 92 L 95 94 L 03/25/18 18:28 03/25/18 20:00 03/26/18 00:00 Temperature 97.9 F 98.1 F Pulse Rate 74 75 Respiratory Rate 16 16 16 Blood Pressure 143/96 H 145/69 H Pulse Oximetry 95 91 L 03/26/18 04:00 03/26/18 08:00 Temperature 98 F 97.6 F Pulse Rate 79 81 Respiratory Rate 16 17 Blood Pressure 165/75 H 108/60 Pulse Oximetry 91 L 93 L Intake & Output 03/25/18 03/26/18 03/26/18 18:59 06:59 18:59 Intake Total 1830 / 1830 Output Total 3000 / 3000 100 / 100 Balance -3000 / -3000 1730 / 1730 Weight 93.7 kg Intake: IV 1000 / 1000 Sodium Bicarbonate 8.4% Inj 100 1000 / 1000 MEQ In 1/2 Normal Saline Inj 900 ML @ 50 mls/hr IV.CONT . Q20H [facility] Rx#:[id number] Oral 830 / 830 Output: Urine 100 / 100 Hemodialysis Amount 3000 / 3000 Other: # Voids 2 Date of Last Bowel Movement 03/25/18 # Bowel Movements 1 1 Narrative: GENERAL: NAD SKIN: Warm and dry. HEAD: Normocephalic. EYES: No scleral icterus. No injection or drainage. NECK: Supple, trachea midline. No JVD or lymphadenopathy. CARDIOVASCULAR: Regular rate and rhythm without murmurs, gallops, or rubs. RESPIRATORY: Breath sounds equal bilaterally. No accessory muscle use. GASTROINTESTINAL: Abdomen soft, non-tender, nondistended. MUSCULOSKELETAL: No cyanosis, or edema. BACK: Nontender without obvious deformity. No CVA tenderness. - Urinary Catheter Management Indwelling Urethral Catheter Cath placed during this visit: yes Urethral indwelling: No Reason for continuing: Hourly intake/output Insertion date: 03/22/18 Insertion time: 00:00 Results - Labs CBC & Chem 7: 03/24/18 08:29 03/24/18 08:29 Assessment and Plan - Plan 47-year-old male admitted secondary to acute renal failure and acute liver failure Dialysis to continue,. M/W/F. Nephrology following. Acute renal failure Avoid nephrotoxins Continue to monitor renal function Nephrology ff Toxic encephalopathy/drug overdose-resolved Polysubstance abuse Cessation recommended Transaminitis Hepatitis C Liver failure Follow LFTs Bilateral lower extremity weakness MRI of lumbar spine shows no acute pathology to explain symptoms Elevated CK 2/2 rhabdomyolysis, however due to patient's current diagnosis of acute renal failure requiring hemodialysis, unable to provide IV fluid hydration Continue physical therapy DVT prophylaxis SCDs
--- NOTE | 2018-03-26 13:53 | P.PNNP ---
Subjective Interval history: Up out of bed in chair. Reported that he walked today and is now very tired. No new labs today. Pain in feet region. <Olga Villatoro - Last Filed: 03/26/18 13:46> Physical Exam Vital signs: Vital Signs 03/25/18 16:00 03/25/18 18:19 03/25/18 18:28 Temperature 98.2 F Pulse Rate 74 Respiratory Rate 20 16 Blood Pressure 183/86 H Pulse Oximetry 95 94 L 03/25/18 20:00 03/26/18 00:00 03/26/18 04:00 Temperature 97.9 F 98.1 F 98 F Pulse Rate 74 75 79 Respiratory Rate 16 16 16 Blood Pressure 143/96 H 145/69 H 165/75 H Pulse Oximetry 95 91 L 91 L 03/26/18 08:00 03/26/18 12:00 Temperature 97.6 F 98.3 F Pulse Rate 81 86 Respiratory Rate 17 17 Blood Pressure 108/60 152/82 H Pulse Oximetry 93 L 92 L Intake & Output 03/25/18 03/26/18 03/26/18 18:59 06:59 18:59 Intake Total 1830 / 1830 Output Total 3000 / 3000 100 / 100 Balance -3000 / -3000 1730 / 1730 Weight 93.7 kg Intake: IV 1000 / 1000 Sodium Bicarbonate 8.4% Inj 100 1000 / 1000 MEQ In 1/2 Normal Saline Inj 900 ML @ 50 mls/hr IV.CONT . Q20H [facility] Rx#:[id number] Oral 830 / 830 Output: Urine 100 / 100 Hemodialysis Amount 3000 / 3000 Other: # Voids 2 Date of Last Bowel Movement 03/25/18 # Bowel Movements 1 1 - Constitutional no acute distress - Routine HEENT Exam Head: Present: normocephalic ENT: Present: mucous membranes moist - Routine Neck Exam Present: supple. Absent: JVD - Routine Respiratory Exam Present: decreased breath sounds. Absent: rhonchi, wheezes - Routine Cardiovascular Exam Present: RRR - Routine Abdominal Exam Present: soft, normoactive bowel sounds - Routine Extremities Exam Present: pulses intact. Absent: Brian's sign - Routine Skin Exam Present: dry, warm - Routine Neurological Exam Present: alert, oriented X3 - Detailed Neurological Exam: Coma Scale Eye Opening: Spontaneous - Routine Psychiatric Exam Present: normal affect - Urinary Catheter Management Indwelling Urethral Catheter Cath placed during this visit: yes Urethral indwelling: No Reason for continuing: Hourly intake/output Insertion date: 03/22/18 Insertion time: 00:00 <Olga Villatoro - Last Filed: 03/26/18 13:46> Vital signs: Vital Signs 03/26/18 00:00 03/26/18 04:00 03/26/18 08:00 Temperature 98.1 F 98 F 97.6 F Pulse Rate 75 79 81 Respiratory Rate 16 16 17 Blood Pressure 145/69 H 165/75 H 108/60 Pulse Oximetry 91 L 91 L 93 L 03/26/18 12:00 03/26/18 14:44 03/26/18 16:00 Temperature 98.3 F 97.8 F Pulse Rate 86 80 Respiratory Rate 17 18 Blood Pressure 152/82 H 168/79 H Pulse Oximetry 92 L 98 95 Intake & Output 03/26/18 03/26/18 03/27/18 06:59 18:59 06:59 Intake Total 1830 / 1830 840 / 840 Output Total 100 / 100 150 / 150 Balance 1730 / 1730 690 / 690 Weight 93.7 kg Intake: IV 1000 / 1000 Sodium Bicarbonate 8.4% Inj 100 1000 / 1000 MEQ In 1/2 Normal Saline Inj 900 ML @ 50 mls/hr IV.CONT . Q20H [facility] Rx#:[id number] Oral 830 / 830 840 / 840 Output: Urine 100 / 100 150 / 150 Other: Date of Last Bowel Movement 03/25/18 03/25/18 # Bowel Movements 1 1 - Urinary Catheter Management Indwelling Urethral Catheter Cath placed during this visit: no <Amira Stewart - Last Filed: 03/26/18 22:31> Assessment and Plan - Assessment (1) Acute kidney injury Code(s): N17.9 - Acute kidney failure, unspecified Status: Acute Plan: Patient has acute renal failure along with liver failure and has not been passing any urine CPKs are elevated on day of consult Has acute tubular necrosis with Rhabdomyolysis Ultrasound showed echogenic kidneys Urinary output at 100ml/24 hours CPK improving Hemodialysis started on 03/21 Hemodialysis yesterday with removal of 3 liters Hemodialysis planned for tomorrow Labs in AM . (2) Hypertension Code(s): I10 - Essential (primary) hypertension Status: Acute Plan: Will monitor On hydralazine <Olga Villatoro - Last Filed: 03/26/18 13:46> - Assessment (1) Acute kidney injury Code(s): N17.9 - Acute kidney failure, unspecified Status: Acute (2) Hypertension Code(s): I10 - Essential (primary) hypertension Status: Acute - Attending Attestation Patient seen and examined, agree with above. Urine out put is low, no improvement in the renal function. HD will be in AM. <Amira Stewart - Last Filed: 03/26/18 22:31>
[2018-03-27] MEDS: Sodium Bicarbonate 8.4% Inj 100 MEQ in Sodium Chloride 0.45 % Inj 900 ML IV.CONT SCH (02:06)
[2018-03-27] MEDS: hydrALAZINE 25 MG Tablet PO SCH ×3 (10:03→17:19)
[2018-03-27] MEDS: Gabapentin 100 MG Capsule PO SCH ×3 (10:04→17:19)
[2018-03-27] MEDS: Senna/Docusate Sodium 8.6/50 MG Tablet PO SCH ×2 (10:04→20:02)
[2018-03-27] MEDS: Calcium Carbonate 500 MG Tablet PO SCH ×3 (10:04→20:00)
[2018-03-27 10:07] LABS: Baso % (Auto) 0.3 % (0.0-2.0); Eos # (Auto) 0.4 th/mm3 (0.0-0.4); Eos % (Auto) 2.5 % (0.0-4.0); Hematocrit 39.7 % (39.0-51.0); Hemoglobin 13.1 gm/dL (13.0-17.0); Lymph # (Auto) 1.6 th/mm3 (1.0-4.8); Lymph % (Auto) 11.1 % (9.0-44.0); Mean Corpuscular HGB Conc 33.1 % (32.0-36.0); Mean Corpuscular Hemoglobin 28.9 pg (27.0-34.0); Mean Corpuscular Volume 87.4 fL (80.0-100.0); Mean Platelet Volume 8.9 fL (7.0-11.0); Mono # (Auto) 1.1 th/mm3 (0.0-0.9); Mono % (Auto) 7.8 % (0.0-8.0); Neut # (Auto) 11.4 th/mm3 (1.8-7.7); Neut % (Auto) 78.3 % (16.0-70.0); Platelet Count 269 th/mm3 (150-450); Red Blood Count 4.54 mil/mm3 (4.50-5.90); Red Cell Distribution Width 15.8 % (11.6-17.2); White Blood Count 14.5 th/mm3 (4.0-11.0)
[2018-03-27 10:41] LABS: Albumin 2.2 g/dL (3.4-5.0); Anion Gap 12 meq/L (5-15); Aspartate Aminotransferase 109 U/L (15-37); Blood Urea Nitrogen 105 mg/dL (7-18); Calcium 9.1 mg/dL (8.5-10.1); Carbon Dioxide 30.7 meq/L (21.0-32.0); Chloride 94 meq/L (98-107); Glomerular Filtration Rate 5 mL/min (>89); Glucose,Random 93 mg/dL (74-106); Potassium 6.4 meq/L (3.5-5.1); Sodium 137 meq/L (136-145)
[2018-03-27 10:54] LABS: Alanine Aminotransferase 206 U/L (12-78); Alkaline Phosphatase 51 U/L (45-117); Creatine Kinase 3602 U/L (39-308); Total Protein 5.8 g/dL (6.4-8.2)
[2018-03-27 11:35] LABS: CKMB Percent 0.1 % (0.0-4.0); Creatine Kinase MB 4.2 ng/mL (0.5-3.6)
[2018-03-27] MEDS: Heparin 10,000 UNITS/10 ML Vial (for IV use) OTHER PRN (12:37)
--- NOTE | 2018-03-27 13:41 | P.PN ---
Subjective Interval history: Follow-up acute renal injury requiring hemodialysis March 25, 2018-patient seen and examined. He had hemodialysis today. Complains of generalized pain to his bilateral lower extremities and requesting some adjustment in his narcotics. March 26, 2018-patient seen and examined, states he still has bilateral lower extremity pain otherwise no other issues and afebrile. March 27, 2018-patient seen and examined, he had hemodialysis performed today .no other issues. Physical Exam Vital signs: Vital Signs 03/26/18 14:44 03/26/18 16:00 03/26/18 20:00 Temperature 97.8 F 98.5 F Pulse Rate 80 87 Respiratory Rate 18 16 Blood Pressure 168/79 H 164/86 H Pulse Oximetry 98 95 97 03/26/18 23:19 03/27/18 00:00 03/27/18 04:00 Temperature 97.8 F 98 F Pulse Rate 87 83 Respiratory Rate 20 16 16 Blood Pressure 155/74 H 161/81 H Pulse Oximetry 93 L 93 L 03/27/18 08:00 Temperature 97.6 F Pulse Rate 77 Respiratory Rate 20 Blood Pressure 167/74 H Pulse Oximetry 93 L Intake & Output 03/26/18 03/27/18 03/27/18 18:59 06:59 18:59 Intake Total 1840 / 1840 720 / 720 Output Total 150 / 150 150 / 150 3000 / 3000 Balance 1690 / 1690 570 / 570 -3000 / -3000 Weight 96.1 kg Intake: IV 1000 / 1000 Sodium Bicarbonate 8.4% Inj 100 1000 / 1000 MEQ In 1/2 Normal Saline Inj 900 ML @ 50 mls/hr IV.CONT . Q20H [facility] Rx#:[id number] Oral 840 / 840 720 / 720 Output: Urine 150 / 150 150 / 150 Hemodialysis Amount 3000 / 3000 Other: Date of Last Bowel Movement 03/25/18 03/26/18 03/26/18 # Bowel Movements 1 1 Narrative: GENERAL: NAD SKIN: Warm and dry. HEAD: Normocephalic. EYES: No scleral icterus. No injection or drainage. NECK: Supple, trachea midline. No JVD or lymphadenopathy. CARDIOVASCULAR: Regular rate and rhythm without murmurs, gallops, or rubs. RESPIRATORY: Breath sounds equal bilaterally. No accessory muscle use. GASTROINTESTINAL: Abdomen soft, non-tender, nondistended. MUSCULOSKELETAL: No cyanosis, or edema. BACK: Nontender without obvious deformity. No CVA tenderness. - Urinary Catheter Management Indwelling Urethral Catheter Cath placed during this visit: yes Urethral indwelling: No Reason for continuing: Hourly intake/output Insertion date: 03/22/18 Insertion time: 00:00 Results - Labs CBC & Chem 7: 03/27/18 08:43 03/27/18 08:42 Laboratory Results - last 24 hr 03/24/18 03/27/18 03/27/18 21:02 08:42 08:43 WBC 14.5 H RBC 4.54 Hgb 13.1 Hct 39.7 MCV 87.4 MCH 28.9 MCHC 33.1 RDW 15.8 Plt Count 269 MPV 8.9 Neut % (Auto) 78.3 H Lymph % (Auto) 11.1 [place] % (Auto) 7.8 Eos % (Auto) 2.5 Baso % (Auto) 0.3 Neut # (Auto) 11.4 H Lymph # (Auto) 1.6 [place] # (Auto) 1.1 H Eos # (Auto) 0.4 Baso # (Auto) 0.0 WBC Differential . Differential Comment Auto diff final Sodium 137 Potassium 6.4 H Chloride 94 L Carbon Dioxide 30.7 Anion Gap 12 BUN 105 H Creatinine 11.93 H* D Estimated GFR 5 L Random Glucose 93 Calcium 9.1 Total Bilirubin 0.4 AST 109 H ALT 206 H Alkaline Phosphatase 51 Total Creatine Kinase 3602 H CK-MB (CK-2) 4.2 H CK-MB (CK-2) % 0.1 Total Protein 5.8 L Albumin 2.2 L TOOTIE Screen Neg Assessment and Plan - Plan 47-year-old male admitted secondary to acute renal failure and acute liver failure Dialysis to continue,. M/W/F. Nephrology following. Acute renal failure Avoid nephrotoxins Continue to monitor renal function Nephrology ff Patient had hemodialysis today Toxic encephalopathy/drug overdose-resolved Polysubstance abuse Cessation recommended Transaminitis Hepatitis C Liver failure Follow LFTs Bilateral lower extremity weakness MRI of lumbar spine shows no acute pathology to explain symptoms Elevated CK 2/2 rhabdomyolysis, however due to patient's current diagnosis of acute renal failure requiring hemodialysis, unable to provide IV fluid hydration Continue physical therapy DVT prophylaxis SCDs
--- NOTE | 2018-03-27 16:41 | P.PNNP ---
Subjective Interval history: Patient seen in AM, during HD. Physical Exam Vital signs: Vital Signs 03/26/18 20:00 03/26/18 23:19 03/27/18 00:00 Temperature 98.5 F 97.8 F Pulse Rate 87 87 Respiratory Rate 16 20 16 Blood Pressure 164/86 H 155/74 H Pulse Oximetry 97 93 L 03/27/18 04:00 03/27/18 08:00 Temperature 98 F 97.6 F Pulse Rate 83 77 Respiratory Rate 16 20 Blood Pressure 161/81 H 167/74 H Pulse Oximetry 93 L 93 L Intake & Output 03/26/18 03/27/18 03/27/18 18:59 06:59 18:59 Intake Total 1840 / 1840 720 / 720 Output Total 150 / 150 150 / 150 3000 / 3000 Balance 1690 / 1690 570 / 570 -3000 / -3000 Weight 96.1 kg Intake: IV 1000 / 1000 Sodium Bicarbonate 8.4% Inj 100 1000 / 1000 MEQ In 1/2 Normal Saline Inj 900 ML @ 50 mls/hr IV.CONT . Q20H [facility] Rx#:[id number] Oral 840 / 840 720 / 720 Output: Urine 150 / 150 150 / 150 Hemodialysis Amount 3000 / 3000 Other: Date of Last Bowel Movement 03/25/18 03/26/18 03/26/18 # Bowel Movements 1 1 - Constitutional no acute distress - Routine HEENT Exam Head: Present: normocephalic - Routine Neck Exam Present: supple - Routine Respiratory Exam Present: decreased breath sounds, CTA bilaterally - Routine Cardiovascular Exam Present: RRR, S1, S2 - Routine Abdominal Exam Present: soft, normoactive bowel sounds, distended - Routine Extremities Exam Present: edema - Routine Skin Exam Present: intact - Routine Neurological Exam Present: alert, oriented X3 - Detailed Neurological Exam: Coma Scale Verbal Response: Oriented - Urinary Catheter Management Indwelling Urethral Catheter Cath placed during this visit: yes Urethral indwelling: No Reason for continuing: Hourly intake/output Insertion date: 03/22/18 Insertion time: 00:00 Assessment and Plan - Assessment (1) Acute kidney injury Code(s): N17.9 - Acute kidney failure, unspecified Status: Acute Plan: Patient has acute renal failure along with liver failure and has not been passing any urine CPKs are elevated on day of consult Has acute tubular necrosis with Rhabdomyolysis Ultrasound showed echogenic kidneys Urinary output at 100ml/24 hours CPK improving Hemodialysis started on 03/21 Hemodialysis yesterday with removal of 3 liters Hemodialysis planned for tomorrow Labs in AM. Patient still has elevated Creatinine and K level was high. HD done, will change diet to low K. Follow BMP over the weekend, may will need HD again. . (2) Hypertension Code(s): I10 - Essential (primary) hypertension Status: Acute Plan: Will monitor On hydralazine - Plan .
[2018-03-28] MEDS: Sodium Bicarbonate 8.4% Inj 100 MEQ in Sodium Chloride 0.45 % Inj 900 ML IV.CONT SCH (02:01)
[2018-03-28] MEDS: hydrALAZINE 25 MG Tablet PO SCH ×3 (09:19→17:44)
[2018-03-28] MEDS: Calcium Carbonate 500 MG Tablet PO SCH ×2 (09:19→22:29)
[2018-03-28] MEDS: Senna/Docusate Sodium 8.6/50 MG Tablet PO SCH ×2 (09:20→22:27)
[2018-03-28] MEDS: Gabapentin 100 MG Capsule PO SCH ×3 (09:21→17:44)
--- NOTE | 2018-03-28 13:27 | P.PN ---
Subjective Interval history: Follow-up acute renal injury requiring hemodialysis March 25, 2018-patient seen and examined. He had hemodialysis today. Complains of generalized pain to his bilateral lower extremities and requesting some adjustment in his narcotics. March 26, 2018-patient seen and examined, states he still has bilateral lower extremity pain otherwise no other issues and afebrile. March 27, 2018-patient seen and examined, he had hemodialysis performed today .no other issues. March 28, 2018-patient seen and examined, states, he did not have a good night sleep due to bilateral lower extremity leg pains Physical Exam Vital signs: Vital Signs 03/27/18 16:00 03/27/18 17:37 03/27/18 20:00 Temperature 97.9 F 98.1 F Pulse Rate 85 87 Respiratory Rate 20 18 Blood Pressure 153/108 H 133/75 Pulse Oximetry 94 L 93 L 96 03/28/18 00:00 03/28/18 02:00 03/28/18 04:00 Temperature 98.7 F 97.9 F Pulse Rate 82 84 Respiratory Rate 16 18 16 Blood Pressure 163/90 H 164/79 H Pulse Oximetry 94 L 91 L 03/28/18 06:25 03/28/18 08:00 Temperature 98.1 F Pulse Rate 81 Respiratory Rate 16 18 Blood Pressure 153/94 H Pulse Oximetry 94 L Intake & Output 03/27/18 03/28/18 03/28/18 18:59 06:59 18:59 Intake Total 840 / 840 1480 / 1480 Output Total 3200 / 3200 150 / 150 Balance -2360 / -2360 1330 / 1330 Weight 95.8 kg Intake: IV 1000 / 1000 Sodium Bicarbonate 8.4% Inj 100 1000 / 1000 MEQ In 1/2 Normal Saline Inj 900 ML @ 50 mls/hr IV.CONT . Q20H [facility] Rx#:[id number] Oral 840 / 840 480 / 480 Output: Urine 200 / 200 150 / 150 Hemodialysis Amount 3000 / 3000 Other: Date of Last Bowel Movement 03/26/18 03/27/18 # Bowel Movements 1 1 Narrative: GENERAL: NAD SKIN: Warm and dry. HEAD: Normocephalic. EYES: No scleral icterus. No injection or drainage. NECK: Supple, trachea midline. No JVD or lymphadenopathy. CARDIOVASCULAR: Regular rate and rhythm without murmurs, gallops, or rubs. RESPIRATORY: Breath sounds equal bilaterally. No accessory muscle use. GASTROINTESTINAL: Abdomen soft, non-tender, nondistended. MUSCULOSKELETAL: No cyanosis, or edema. BACK: Nontender without obvious deformity. No CVA tenderness. - Urinary Catheter Management Indwelling Urethral Catheter Cath placed during this visit: yes Urethral indwelling: No Reason for continuing: Chronic Urinary Retention Insertion date: 03/22/18 Insertion time: 00:00 Results - Labs CBC & Chem 7: 03/27/18 08:43 03/27/18 08:42 Assessment and Plan - Plan 47-year-old male admitted secondary to acute renal failure and acute liver failure Dialysis to continue,. M/W/F. Nephrology following. Acute renal failure Avoid nephrotoxins Continue to monitor renal function Nephrology ff Patient had hemodialysis today Toxic encephalopathy/drug overdose-resolved Polysubstance abuse Cessation recommended Transaminitis Hepatitis C Liver failure Follow LFTs Bilateral lower extremity weakness MRI of lumbar spine shows no acute pathology to explain symptoms Elevated CK 2/2 rhabdomyolysis, however due to patient's current diagnosis of acute renal failure requiring hemodialysis, patient is currently on low rate IV fluid hydration Continue physical therapy DVT prophylaxis SCDs
--- NOTE | 2018-03-28 22:32 | P.PNNP ---
Subjective Interval history: no acute issues Physical Exam Vital signs: Vital Signs 03/28/18 00:00 03/28/18 02:00 03/28/18 04:00 Temperature 98.7 F 97.9 F Pulse Rate 82 84 Respiratory Rate 16 18 16 Blood Pressure 163/90 H 164/79 H Pulse Oximetry 94 L 91 L 03/28/18 06:25 03/28/18 08:00 03/28/18 12:00 Temperature 98.1 F 98.6 F Pulse Rate 81 85 Respiratory Rate 16 18 18 Blood Pressure 153/94 H 169/85 H Pulse Oximetry 94 L 95 03/28/18 16:00 03/28/18 18:12 Temperature 97.9 F Pulse Rate 76 Respiratory Rate 20 Blood Pressure 124/61 Pulse Oximetry 96 96 Intake & Output 03/28/18 03/28/18 03/29/18 06:59 18:59 06:59 Intake Total 1480 / 1480 720 / 720 Output Total 150 / 150 700 / 700 Balance 1330 / 1330 20 / 20 Weight 95.8 kg Intake: IV 1000 / 1000 Sodium Bicarbonate 8.4% Inj 100 1000 / 1000 MEQ In 1/2 Normal Saline Inj 900 ML @ 50 mls/hr IV.CONT . Q20H [facility] Rx#:[id number] Oral 480 / 480 720 / 720 Output: Urine 150 / 150 Urine Amount (Catheter) 700 / 700 Indwelling Urethral Catheter 700 / 700 Other: Date of Last Bowel Movement 03/27/18 03/27/18 # Bowel Movements 1 - Constitutional no acute distress - Routine HEENT Exam Head: Present: normocephalic Eye: Present: EOMI ENT: Present: mucous membranes moist - Routine Neck Exam Present: supple - Routine Respiratory Exam Present: diminished air movement - Routine Cardiovascular Exam Present: RRR - Routine Abdominal Exam Present: soft - Routine Skin Exam Present: intact - Routine Neurological Exam Present: alert - Detailed Neurological Exam: Coma Scale Eye Opening: Spontaneous - Routine Psychiatric Exam Present: normal affect - Urinary Catheter Management Indwelling Urethral Catheter Cath placed during this visit: yes Urethral indwelling: No Reason for continuing: Chronic Urinary Retention Insertion date: 03/22/18 Insertion time: 00:00 Assessment and Plan - Assessment (1) Acute kidney injury Code(s): N17.9 - Acute kidney failure, unspecified Status: Acute Plan: Patient has acute renal failure along with liver failure and has not been passing any urine CPKs are elevated on day of consult Has acute tubular necrosis with Rhabdomyolysis Ultrasound showed echogenic kidneys CPK improving Hemodialysis started on 03/21 Hemodialysis Friday, plan next HD Friday HD Friday Volume status stable. Will check AM labs . (2) Hypertension Code(s): I10 - Essential (primary) hypertension Status: Acute Plan: Will monitor On hydralazine - Plan .
[2018-03-29 02:43] LABS: Hematocrit 33.3 % (39.0-51.0); Hemoglobin 11.1 gm/dL (13.0-17.0); Mean Corpuscular HGB Conc 33.4 % (32.0-36.0); Mean Corpuscular Hemoglobin 29.1 pg (27.0-34.0); Mean Corpuscular Volume 87.4 fL (80.0-100.0); Mean Platelet Volume 8.8 fL (7.0-11.0); Platelet Count 245 th/mm3 (150-450); Red Blood Count 3.81 mil/mm3 (4.50-5.90); Red Cell Distribution Width 15.7 % (11.6-17.2); White Blood Count 12.2 th/mm3 (4.0-11.0)
[2018-03-29 03:01] LABS: Alanine Aminotransferase 132 U/L (12-78); Albumin 2.2 g/dL (3.4-5.0); Alkaline Phosphatase 46 U/L (45-117); Anion Gap 10 meq/L (5-15); Aspartate Aminotransferase 48 U/L (15-37); Blood Urea Nitrogen 86 mg/dL (7-18); Calcium 8.3 mg/dL (8.5-10.1); Chloride 97 meq/L (98-107); Glomerular Filtration Rate 5 mL/min (>89); Glucose,Random 88 mg/dL (74-106); Magnesium 2.3 mg/dL (1.5-2.5); Phosphorus 7.1 mg/dL (2.5-4.9); Potassium 6.5 meq/L (3.5-5.1); Sodium 138 meq/L (136-145); Total Protein 5.4 g/dL (6.4-8.2)
[2018-03-29] MEDS: Sodium Bicarbonate 8.4% Inj 100 MEQ in Sodium Chloride 0.45 % Inj 900 ML IV.CONT SCH (05:10)
[2018-03-29] MEDS: Calcium Carbonate 500 MG Tablet PO SCH ×2 (09:46→22:05)
[2018-03-29] MEDS: Senna/Docusate Sodium 8.6/50 MG Tablet PO SCH ×2 (09:47→22:06)
[2018-03-29] MEDS: hydrALAZINE 25 MG Tablet PO SCH ×3 (09:47→18:32)
[2018-03-29] MEDS: Gabapentin 100 MG Capsule PO SCH ×3 (09:47→18:32)
--- NOTE | 2018-03-29 12:09 | P.PN ---
Subjective Interval history: Follow-up acute renal injury requiring hemodialysis March 25, 2018-patient seen and examined. He had hemodialysis today. Complains of generalized pain to his bilateral lower extremities and requesting some adjustment in his narcotics. March 26, 2018-patient seen and examined, states he still has bilateral lower extremity pain otherwise no other issues and afebrile. March 27, 2018-patient seen and examined, he had hemodialysis performed today .no other issues. March 28, 2018-patient seen and examined, states, he did not have a good night sleep due to bilateral lower extremity leg pains March 29, 2018-patient seen and examined, states he is having good urine output. No acute event overnight beside patient's complaint of lower extremity pain Physical Exam Vital signs: Vital Signs 03/28/18 16:00 03/28/18 18:12 03/28/18 20:00 Temperature 97.9 F 98.6 F Pulse Rate 76 82 Respiratory Rate 20 20 Blood Pressure 124/61 175/94 H Pulse Oximetry 96 96 95 03/28/18 23:32 03/29/18 00:00 03/29/18 04:00 Temperature 98.5 F 98.5 F Pulse Rate 80 73 Respiratory Rate 6 L 20 20 Blood Pressure 171/85 H 139/89 Pulse Oximetry 90 L 90 L 03/29/18 05:08 03/29/18 08:00 Temperature 98.1 F Pulse Rate 87 Respiratory Rate 20 18 Blood Pressure 162/90 H Pulse Oximetry 94 L Intake & Output 03/28/18 03/29/18 03/29/18 18:59 06:59 18:59 Intake Total 720 / 720 1600 / 1600 Output Total 700 / 700 800 / 800 Balance 20 / 20 800 / 800 Weight 97.7 kg Intake: IV 1000 / 1000 Sodium Bicarbonate 8.4% Inj 100 1000 / 1000 MEQ In 1/2 Normal Saline Inj 900 ML @ 50 mls/hr IV.CONT . Q20H [facility] Rx#:[id number] Oral 720 / 720 600 / 600 Output: Urine Amount (Catheter) 700 / 700 800 / 800 Indwelling Urethral Catheter 700 / 700 800 / 800 Other: Date of Last Bowel Movement 03/27/18 Narrative: GENERAL: NAD SKIN: Warm and dry. HEAD: Normocephalic. EYES: No scleral icterus. No injection or drainage. NECK: Supple, trachea midline. No JVD or lymphadenopathy. CARDIOVASCULAR: Regular rate and rhythm without murmurs, gallops, or rubs. RESPIRATORY: Breath sounds equal bilaterally. No accessory muscle use. GASTROINTESTINAL: Abdomen soft, non-tender, nondistended. MUSCULOSKELETAL: No cyanosis, or edema. BACK: Nontender without obvious deformity. No CVA tenderness. - Urinary Catheter Management Indwelling Urethral Catheter Cath placed during this visit: yes Urethral indwelling: No Reason for continuing: Chronic Urinary Retention Insertion date: 03/22/18 Insertion time: 00:00 Results - Labs CBC & Chem 7: 03/29/18 01:58 03/29/18 01:58 Laboratory Results - last 24 hr 03/29/18 03/29/18 01:58 01:58 WBC 12.2 H RBC 3.81 L Hgb 11.1 L D Hct 33.3 L MCV 87.4 MCH 29.1 MCHC 33.4 RDW 15.7 Plt Count 245 MPV 8.8 Sodium 138 Potassium 6.5 H Chloride 97 L Carbon Dioxide 31.0 Anion Gap 10 BUN 86 H Creatinine 10.61 H* D Estimated GFR 5 L Random Glucose 88 Calcium 8.3 L D Phosphorus 7.1 H Magnesium 2.3 Total Bilirubin 0.3 AST 48 H ALT 132 H Alkaline Phosphatase 46 Total Protein 5.4 L Albumin 2.2 L Assessment and Plan - Plan 47-year-old male admitted secondary to acute renal failure and acute liver failure Dialysis to continue,. M/W/F. Nephrology following. Acute renal failure Avoid nephrotoxins Continue to monitor renal function Nephrology ff Next hemodialysis Friday, March 30, 2018 Toxic encephalopathy/drug overdose-resolved Polysubstance abuse Cessation recommended Transaminitis Hepatitis C Liver failure Follow LFTs Bilateral lower extremity weakness Rhabdomyolysis MRI of lumbar spine shows no acute pathology to explain symptoms Elevated CK 2/2 rhabdomyolysis, however due to patient's current diagnosis of acute renal failure requiring hemodialysis, patient is currently on low rate IV fluid hydration Continue physical therapy DVT prophylaxis SCDs
--- NOTE | 2018-03-29 17:44 | P.PNNP ---
Subjective Interval history: no acute complaints Physical Exam Vital signs: Vital Signs 03/28/18 18:12 03/28/18 20:00 03/28/18 23:32 Temperature 98.6 F Pulse Rate 82 Respiratory Rate 20 6 L Blood Pressure 175/94 H Pulse Oximetry 96 95 03/29/18 00:00 03/29/18 04:00 03/29/18 05:08 Temperature 98.5 F 98.5 F Pulse Rate 80 73 Respiratory Rate 20 20 20 Blood Pressure 171/85 H 139/89 Pulse Oximetry 90 L 90 L 03/29/18 08:00 03/29/18 12:00 Temperature 98.1 F 97.6 F Pulse Rate 87 76 Respiratory Rate 18 18 Blood Pressure 162/90 H 167/89 H Pulse Oximetry 94 L 98 Intake & Output 03/28/18 03/29/18 03/29/18 18:59 06:59 18:59 Intake Total 720 / 720 1600 / 1600 Output Total 700 / 700 800 / 800 Balance 20 / 20 800 / 800 Weight 97.7 kg Intake: IV 1000 / 1000 Sodium Bicarbonate 8.4% Inj 100 1000 / 1000 MEQ In 1/2 Normal Saline Inj 900 ML @ 50 mls/hr IV.CONT . Q20H [facility] Rx#:[id number] Oral 720 / 720 600 / 600 Output: Urine Amount (Catheter) 700 / 700 800 / 800 Indwelling Urethral Catheter 700 / 700 800 / 800 Other: Date of Last Bowel Movement 03/27/18 03/27/18 - Constitutional no acute distress - Routine HEENT Exam Head: Present: normocephalic Eye: Present: EOMI ENT: Present: mucous membranes moist - Routine Neck Exam Present: supple - Routine Respiratory Exam Present: decreased breath sounds - Routine Cardiovascular Exam Present: RRR - Routine Abdominal Exam Present: soft - Routine Skin Exam Present: intact - Routine Neurological Exam Present: alert, oriented X3 - Detailed Neurological Exam: Coma Scale Eye Opening: Spontaneous - Routine Psychiatric Exam Present: normal affect - Urinary Catheter Management Indwelling Urethral Catheter Cath placed during this visit: yes Urethral indwelling: No Reason for continuing: Chronic Urinary Retention Insertion date: 03/22/18 Insertion time: 00:00 Assessment and Plan - Assessment (1) Acute kidney injury Code(s): N17.9 - Acute kidney failure, unspecified Status: Acute Plan: Patient has acute renal failure along with liver failure and had not been passing any urine CPKs are elevated on day of consult Has acute tubular necrosis with Rhabdomyolysis Ultrasound showed echogenic kidneys CPK improving Hemodialysis started on 03/21 Hemodialysis Friday, plan next HD Friday UOP improving with 1.5L/ 24 hours. Continue to monitor for recovery Volume status stable. Will check AM labs . (2) Hypertension Code(s): I10 - Essential (primary) hypertension Status: Acute Plan: Will monitor On hydralazine - Plan .
[2018-03-30 06:11] LABS: Alanine Aminotransferase 108 U/L (12-78); Albumin 2.2 g/dL (3.4-5.0); Alkaline Phosphatase 45 U/L (45-117); Anion Gap 12 meq/L (5-15); Aspartate Aminotransferase 31 U/L (15-37); Blood Urea Nitrogen 101 mg/dL (7-18); Calcium 8.5 mg/dL (8.5-10.1); Carbon Dioxide 29.4 meq/L (21.0-32.0); Chloride 96 meq/L (98-107); Glomerular Filtration Rate 4 mL/min (>89); Glucose,Random 106 mg/dL (74-106); Sodium 137 meq/L (136-145); Total Protein 5.5 g/dL (6.4-8.2)
[2018-03-30 06:25] LABS: Potassium 7.1 meq/L (3.5-5.1)
[2018-03-30] MEDS: Senna/Docusate Sodium 8.6/50 MG Tablet PO SCH ×2 (09:02→22:46)
[2018-03-30] MEDS: Calcium Carbonate 500 MG Tablet PO SCH ×2 (09:02→22:45)
[2018-03-30] MEDS: Gabapentin 100 MG Capsule PO SCH ×3 (09:03→18:18)
[2018-03-30] MEDS: hydrALAZINE 25 MG Tablet PO SCH ×3 (09:04→18:18)
--- NOTE | 2018-03-30 11:30 | P.PN ---
Subjective Interval history: Follow-up acute renal injury requiring hemodialysis March 25, 2018-patient seen and examined. He had hemodialysis today. Complains of generalized pain to his bilateral lower extremities and requesting some adjustment in his narcotics. March 26, 2018-patient seen and examined, states he still has bilateral lower extremity pain otherwise no other issues and afebrile. March 27, 2018-patient seen and examined, he had hemodialysis performed today .no other issues. March 28, 2018-patient seen and examined, states, he did not have a good night sleep due to bilateral lower extremity leg pains March 29, 2018-patient seen and examined, states he is having good urine output. No acute event overnight beside patient's complaint of lower extremity pain March 30, 2018-patient seen and examined, stable, no complaint other than bilateral lower extremity pain Physical Exam Vital signs: Vital Signs 03/29/18 12:00 03/29/18 16:00 03/29/18 20:00 Temperature 97.6 F 97.9 F 98.0 F Pulse Rate 76 95 H 77 Respiratory Rate 18 18 17 Blood Pressure 167/89 H 164/81 H 165/89 H Pulse Oximetry 98 94 L 95 03/30/18 00:00 03/30/18 04:00 03/30/18 09:02 Temperature 97.9 F 90.1 F L Pulse Rate 80 75 Respiratory Rate 20 20 Blood Pressure 159/76 H 164/84 H Pulse Oximetry 91 L 94 L 91 L Intake & Output 03/29/18 03/30/18 03/30/18 18:59 06:59 18:59 Intake Total 840 / 840 Output Total 500 / 500 Balance 340 / 340 Intake: Oral 840 / 840 Output: Urine Amount (Catheter) 500 / 500 Indwelling Urethral Catheter 500 / 500 Other: Date of Last Bowel Movement 03/27/18 Narrative: GENERAL: NAD SKIN: Warm and dry. HEAD: Normocephalic. EYES: No scleral icterus. No injection or drainage. NECK: Supple, trachea midline. No JVD or lymphadenopathy. CARDIOVASCULAR: Regular rate and rhythm without murmurs, gallops, or rubs. RESPIRATORY: Breath sounds equal bilaterally. No accessory muscle use. GASTROINTESTINAL: Abdomen soft, non-tender, nondistended. MUSCULOSKELETAL: No cyanosis, or edema. BACK: Nontender without obvious deformity. No CVA tenderness. - Urinary Catheter Management Indwelling Urethral Catheter Cath placed during this visit: yes Urethral indwelling: No Reason for continuing: Chronic Urinary Retention Insertion date: 03/22/18 Insertion time: 00:00 Results - Labs CBC & Chem 7: 03/29/18 01:58 03/30/18 05:00 Laboratory Results - last 24 hr 03/24/18 03/30/18 21:02 05:00 Sodium 137 Potassium 7.1 H* Chloride 96 L Carbon Dioxide 29.4 Anion Gap 12 BUN 101 H Creatinine 12.33 H* D Estimated GFR 4 L Random Glucose 106 Calcium 8.5 Total Bilirubin 0.4 AST 31 ALT 108 H Alkaline Phosphatase 45 Total Protein 5.5 L Albumin 2.2 L Anti-Proteinase 3 Less than 1.0 Anti-Myeloperoxidase Less than 1.0 Assessment and Plan - Plan 47-year-old male admitted secondary to acute renal failure and acute liver failure Dialysis to continue,. M/W/F. Nephrology following. Acute renal failure Avoid nephrotoxins Continue to monitor renal function Nephrology ff Next hemodialysis today Friday, March 30, 2018 Toxic encephalopathy/drug overdose-resolved Polysubstance abuse Cessation recommended Transaminitis Hepatitis C Liver failure Follow LFTs Bilateral lower extremity weakness Rhabdomyolysis MRI of lumbar spine shows no acute pathology to explain symptoms Elevated CK 2/2 rhabdomyolysis, however due to patient's current diagnosis of acute renal failure requiring hemodialysis, patient is currently on low rate IV fluid hydration Continue physical therapy DVT prophylaxis SCDs
[2018-03-30] MEDS: Acetaminophen 325 MG Tablet PO PRN (15:33)
--- NOTE | 2018-03-30 16:50 | P.PNNP ---
Subjective Interval history: Seen during hemodialysis tolerating well. Potassium is elevated on 1 K bath. <Olga Villatoro - Last Filed: 03/30/18 16:46> Physical Exam Vital signs: Vital Signs 03/29/18 20:00 03/30/18 00:00 03/30/18 04:00 Temperature 98.0 F 97.9 F 90.1 F L Pulse Rate 77 80 75 Respiratory Rate 17 20 20 Blood Pressure 165/89 H 159/76 H 164/84 H Pulse Oximetry 95 91 L 94 L 03/30/18 08:00 03/30/18 09:02 03/30/18 12:00 Temperature 97.7 F Pulse Rate 81 82 Respiratory Rate 20 20 Blood Pressure 149/78 H 164/81 H Pulse Oximetry 92 L 91 L 92 L Intake & Output 03/29/18 03/30/18 03/30/18 18:59 06:59 18:59 Intake Total 840 / 840 Output Total 500 / 500 Balance 340 / 340 Intake: Oral 840 / 840 Output: Urine Amount (Catheter) 500 / 500 Indwelling Urethral Catheter 500 / 500 Other: Date of Last Bowel Movement 03/27/18 03/27/18 - Constitutional no acute distress - Routine HEENT Exam Head: Present: normocephalic - Routine Neck Exam Present: supple. Absent: JVD - Routine Respiratory Exam Present: decreased breath sounds - Routine Cardiovascular Exam Present: RRR. Absent: murmur - Routine Abdominal Exam Present: soft, normoactive bowel sounds - Routine Extremities Exam Present: vascular access - Routine Skin Exam Present: dry, warm - Routine Neurological Exam Present: alert, oriented X3 - Urinary Catheter Management Indwelling Urethral Catheter Cath placed during this visit: yes Urethral indwelling: No Reason for continuing: Chronic Urinary Retention Insertion date: 03/22/18 Insertion time: 00:00 <Olga Villatoro - Last Filed: 03/30/18 16:46> Vital signs: Vital Signs 03/30/18 00:00 03/30/18 04:00 03/30/18 08:00 Temperature 97.9 F 90.1 F L 97.7 F Pulse Rate 80 75 81 Respiratory Rate 20 20 20 Blood Pressure 159/76 H 164/84 H 149/78 H Pulse Oximetry 91 L 94 L 92 L 03/30/18 09:02 03/30/18 12:00 03/30/18 16:00 Temperature 97.7 F Pulse Rate 82 66 Respiratory Rate 20 20 Blood Pressure 164/81 H 186/96 H Pulse Oximetry 91 L 92 L 94 L Intake & Output 03/30/18 03/30/18 03/31/18 06:59 18:59 06:59 Intake Total 960 / 960 Output Total 950 / 950 Balance Intake: Oral 960 / 960 Output: Urine 950 / 950 Other: Date of Last Bowel Movement 03/27/18 - Urinary Catheter Management Indwelling Urethral Catheter Cath placed during this visit: no <Amira Stewart - Last Filed: 03/30/18 21:16> Assessment and Plan - Assessment (1) Acute kidney injury Code(s): N17.9 - Acute kidney failure, unspecified Status: Acute Plan: Patient has acute renal failure along with liver failure and had not been passing any urine CPKs are elevated on day of consult Has acute tubular necrosis with Rhabdomyolysis Ultrasound showed echogenic kidneys CPK improving Creatinine at 12.33 and potassium at 7.1 Hemodialysis started on 03/21 UOP improving with 1.5L/ 24 hours. Seen during hemodialysis tolerating well with hyperkalemia getting 1 k bath only Continue to monitor urinary output, BMP, and watch for renal recovery Labs in AM . (2) Hypertension Code(s): I10 - Essential (primary) hypertension Status: Acute Plan: Will monitor On hydralazine <Olag Villatoro - Last Filed: 03/30/18 16:46> - Assessment (1) Acute kidney injury Code(s): N17.9 - Acute kidney failure, unspecified Status: Acute (2) Hypertension Code(s): I10 - Essential (primary) hypertension Status: Acute - Attending Attestation Patient seen and examined, agree with above. K was very high, told to restrict K in the diet. Still no improvement in the renal function, urine out put is better. <Amira Stewart - Last Filed: 03/30/18 21:16>
[2018-03-31] MEDS: Sodium Bicarbonate 8.4% Inj 100 MEQ in Sodium Chloride 0.45 % Inj 900 ML IV.CONT SCH (05:35)
[2018-03-31 08:32] LABS: Alanine Aminotransferase 83 U/L (12-78); Albumin 2.1 g/dL (3.4-5.0); Alkaline Phosphatase 42 U/L (45-117); Anion Gap 12 meq/L (5-15); Aspartate Aminotransferase 21 U/L (15-37); Blood Urea Nitrogen 68 mg/dL (7-18); Calcium 8.7 mg/dL (8.5-10.1); Carbon Dioxide 28.9 meq/L (21.0-32.0); Chloride 98 meq/L (98-107); Glomerular Filtration Rate 6 mL/min (>89); Glucose,Random 140 mg/dL (74-106); Phosphorus 6.9 mg/dL (2.5-4.9); Potassium 5.1 meq/L (3.5-5.1); Sodium 139 meq/L (136-145); Total Protein 5.4 g/dL (6.4-8.2)
[2018-03-31] MEDS: Gabapentin 100 MG Capsule PO SCH ×3 (08:51→17:28)
[2018-03-31] MEDS: Senna/Docusate Sodium 8.6/50 MG Tablet PO SCH ×2 (08:51→22:40)
[2018-03-31] MEDS: Calcium Carbonate 500 MG Tablet PO SCH ×2 (08:52→22:40)
[2018-03-31] MEDS: hydrALAZINE 25 MG Tablet PO SCH (08:52)
--- NOTE | 2018-03-31 10:29 | P.PNNP ---
Subjective Interval history: Continues to report pain in feet. Mild shortness of breath. Hemodialysis yesterday. <Olga Villatoro - Last Filed: 03/31/18 10:22> Physical Exam Vital signs: Vital Signs 03/30/18 12:00 03/30/18 16:00 03/30/18 20:00 Temperature 97.7 F 98.1 F Pulse Rate 82 66 75 Respiratory Rate 20 20 18 Blood Pressure 164/81 H 186/96 H 179/86 H Pulse Oximetry 92 L 94 L 94 L 03/30/18 22:00 03/30/18 22:15 03/31/18 00:00 Temperature 97.4 F L Pulse Rate 66 Respiratory Rate 18 Blood Pressure 182/86 H 182/84 H 164/79 H Pulse Oximetry 93 L 03/31/18 04:00 03/31/18 08:00 Temperature 98.1 F 97.7 F Pulse Rate 97 H 67 Respiratory Rate 18 16 Blood Pressure 170/83 H 143/77 H Pulse Oximetry 92 L 91 L Intake & Output 03/30/18 03/31/18 03/31/18 18:59 06:59 18:59 Intake Total 960 / 960 702 / 702 Output Total 950 / 950 700 / 700 Balance 2 Weight 97.4 kg Intake: Oral 960 / 960 702 / 702 Output: Urine 950 / 950 700 / 700 Other: Date of Last Bowel Movement 03/27/18 # Bowel Movements 1 - Constitutional no acute distress - Routine HEENT Exam Head: Present: normocephalic ENT: Present: mucous membranes moist - Routine Neck Exam Present: supple. Absent: JVD - Routine Respiratory Exam Present: decreased breath sounds. Absent: rales, rhonchi, wheezes - Routine Cardiovascular Exam Present: RRR. Absent: murmur - Routine Abdominal Exam Present: soft, normoactive bowel sounds - Routine Extremities Exam Present: edema, vascular access - Routine Skin Exam Present: dry, warm - Routine Neurological Exam Present: alert, oriented X3 - Routine Psychiatric Exam Present: cooperative - Urinary Catheter Management Indwelling Urethral Catheter Cath placed during this visit: yes Urethral indwelling: No Reason for continuing: Chronic Urinary Retention Insertion date: 03/22/18 Insertion time: 00:00 <Olga Villatoro - Last Filed: 03/31/18 10:22> Vital signs: Vital Signs 03/30/18 22:00 03/30/18 22:15 03/31/18 00:00 Temperature 97.4 F L Pulse Rate 66 Respiratory Rate 18 Blood Pressure 182/86 H 182/84 H 164/79 H Pulse Oximetry 93 L 03/31/18 04:00 03/31/18 08:00 03/31/18 12:00 Temperature 98.1 F 97.7 F 98.5 F Pulse Rate 97 H 67 58 L Respiratory Rate 18 16 16 Blood Pressure 170/83 H 143/77 H 172/86 H Pulse Oximetry 92 L 91 L 91 L 03/31/18 16:00 03/31/18 20:00 Temperature 98.6 F 98.0 F Pulse Rate 69 80 Respiratory Rate 16 18 Blood Pressure 135/83 167/84 H Pulse Oximetry 94 L 94 L Intake & Output 03/31/18 03/31/18 04/01/18 06:59 18:59 06:59 Intake Total 702 / 702 520 / 520 Output Total 700 / 700 650 / 650 Balance 2 / 2 -130 / -130 Weight 97.4 kg Intake: Oral 702 / 702 520 / 520 Output: Urine 700 / 700 650 / 650 Other: # Bowel Movements 1 0 - Urinary Catheter Management Indwelling Urethral Catheter Cath placed during this visit: no <Amira Stewart - Last Filed: 03/31/18 21:39> Assessment and Plan - Assessment (1) Acute kidney injury Code(s): N17.9 - Acute kidney failure, unspecified Status: Acute Plan: Patient has acute renal failure along with liver failure and had not been passing any urine CPKs are elevated on day of consult Has acute tubular necrosis with Rhabdomyolysis Ultrasound showed echogenic kidneys CPK improving Creatinine starting to improve at 9.57 and potassium 5.1 Hemodialysis started on 03/21 Hemodialysis yesterday tolerated well. UOP improving with 1.6L/ 24 hours. Hyperkalemia resolved. Renal diet. Continue to monitor urinary output, BMP, and watch for renal recovery Labs in AM Hemodialysis tomorrow . (2) Hypertension Code(s): I10 - Essential (primary) hypertension Status: Acute Plan: Will monitor On hydralazine increased <Olga Villatoro - Last Filed: 03/31/18 10:22> - Assessment (1) Acute kidney injury Code(s): N17.9 - Acute kidney failure, unspecified Status: Acute (2) Hypertension Code(s): I10 - Essential (primary) hypertension Status: Acute - Attending Attestation Patient seen and examine, agree with above. Creatinine is still elevated, BP is stable. Watch for renal recovery. HD will be in AM. <Amira Stewart - Last Filed: 03/31/18 21:39>
[2018-03-31] MEDS: hydrALAZINE 50 MG Tablet PO SCH ×2 (13:17→17:29)
--- NOTE | 2018-03-31 13:39 | P.PN ---
Subjective Interval history: Follow-up acute renal injury requiring hemodialysis March 25, 2018-patient seen and examined. He had hemodialysis today. Complains of generalized pain to his bilateral lower extremities and requesting some adjustment in his narcotics. March 26, 2018-patient seen and examined, states he still has bilateral lower extremity pain otherwise no other issues and afebrile. March 27, 2018-patient seen and examined, he had hemodialysis performed today .no other issues. March 28, 2018-patient seen and examined, states, he did not have a good night sleep due to bilateral lower extremity leg pains March 29, 2018-patient seen and examined, states he is having good urine output. No acute event overnight beside patient's complaint of lower extremity pain March 30, 2018-patient seen and examined, stable, no complaint other than bilateral lower extremity pain March 31, 2018-patient seen and examined, states he had a rough night, also complains of Headache since yesterday Physical Exam Vital signs: Vital Signs 03/30/18 16:00 03/30/18 20:00 03/30/18 22:00 Temperature 97.7 F 98.1 F Pulse Rate 66 75 Respiratory Rate 20 18 Blood Pressure 186/96 H 179/86 H 182/86 H Pulse Oximetry 94 L 94 L 03/30/18 22:15 03/31/18 00:00 03/31/18 04:00 Temperature 97.4 F L 98.1 F Pulse Rate 66 97 H Respiratory Rate 18 18 Blood Pressure 182/84 H 164/79 H 170/83 H Pulse Oximetry 93 L 92 L 03/31/18 08:00 Temperature 97.7 F Pulse Rate 67 Respiratory Rate 16 Blood Pressure 143/77 H Pulse Oximetry 91 L Intake & Output 03/30/18 03/31/18 03/31/18 18:59 06:59 18:59 Intake Total 960 / 960 702 / 702 Output Total 950 / 950 700 / 700 Balance Weight 97.4 kg Intake: Oral 960 / 960 702 / 702 Output: Urine 950 / 950 700 / 700 Other: Date of Last Bowel Movement 03/27/18 # Bowel Movements 1 Narrative: GENERAL: NAD SKIN: Warm and dry. HEAD: Normocephalic. EYES: No scleral icterus. No injection or drainage. NECK: Supple, trachea midline. No JVD or lymphadenopathy. CARDIOVASCULAR: Regular rate and rhythm without murmurs, gallops, or rubs. RESPIRATORY: Breath sounds equal bilaterally. No accessory muscle use. GASTROINTESTINAL: Abdomen soft, non-tender, nondistended. MUSCULOSKELETAL: No cyanosis, or edema. BACK: Nontender without obvious deformity. No CVA tenderness. - Urinary Catheter Management Indwelling Urethral Catheter Cath placed during this visit: yes Urethral indwelling: No Reason for continuing: Chronic Urinary Retention Insertion date: 03/22/18 Insertion time: 00:00 Results - Labs CBC & Chem 7: 03/29/18 01:58 03/31/18 06:36 Laboratory Results - last 24 hr 03/31/18 06:36 Sodium 139 Potassium 5.1 D Chloride 98 Carbon Dioxide 28.9 Anion Gap 12 BUN 68 H Creatinine 9.57 H Estimated GFR 6 L Random Glucose 140 H Calcium 8.7 Phosphorus 6.9 H Total Bilirubin 0.4 AST 21 ALT 83 H Alkaline Phosphatase 42 L Total Protein 5.4 L Albumin 2.1 L Assessment and Plan - Plan 47-year-old male admitted secondary to acute renal failure and acute liver failure Dialysis to continue,. M/W/F. Nephrology following. Acute renal failure Avoid nephrotoxins Continue to monitor renal function Nephrology ff Next hemodialysis today Friday, March 30, 2018 Toxic encephalopathy/drug overdose-resolved Polysubstance abuse Cessation recommended Transaminitis Hepatitis C Liver failure Follow LFTs Headache Treat with Tylenol as needed Bilateral lower extremity weakness Rhabdomyolysis MRI of lumbar spine shows no acute pathology to explain symptoms Elevated CK 2/2 rhabdomyolysis, however due to patient's current diagnosis of acute renal failure requiring hemodialysis, patient is currently on low rate IV fluid hydration Continue physical therapy DVT prophylaxis SCDs
[2018-04-01] MEDS: Sodium Bicarbonate 8.4% Inj 100 MEQ in Sodium Chloride 0.45 % Inj 900 ML IV.CONT SCH (04:58)
[2018-04-01] MEDS: Heparin 10,000 UNITS/10 ML Vial (for IV use) OTHER PRN (11:35)
[2018-04-01] MEDS: hydrALAZINE 50 MG Tablet PO SCH ×3 (12:33→17:40)
[2018-04-01] MEDS: Gabapentin 100 MG Capsule PO SCH ×3 (12:33→17:40)
[2018-04-01] MEDS: Calcium Carbonate 500 MG Tablet PO SCH ×2 (12:47→20:43)
[2018-04-01] MEDS: Senna/Docusate Sodium 8.6/50 MG Tablet PO SCH ×2 (12:47→20:50)
--- NOTE | 2018-04-01 13:18 | P.PN ---
Subjective Interval history: Follow-up acute renal injury requiring hemodialysis April 01, 2018-patient seen and examined, returned from hemodialysis center. Complains of headaches. No other issues. Physical Exam Vital signs: Vital Signs 03/31/18 16:00 03/31/18 20:00 04/01/18 00:00 Temperature 98.6 F 98.0 F 98.3 F Pulse Rate 69 80 74 Respiratory Rate 16 18 18 Blood Pressure 135/83 167/84 H 187/91 H Pulse Oximetry 94 L 94 L 95 04/01/18 04:00 04/01/18 08:00 Temperature 99.0 F 97.8 F Pulse Rate 85 84 Respiratory Rate 17 18 Blood Pressure 173/86 H 152/86 H Pulse Oximetry 93 L 90 L Intake & Output 03/31/18 04/01/18 04/01/18 18:59 06:59 18:59 Intake Total 520 / 520 1450 / 1450 Output Total 650 / 650 1400 / 1400 3000 / 3000 Balance -130 / -130 50 / 50 -3000 / -3000 Weight 98.2 kg Intake: IV 1000 / 1000 Sodium Bicarbonate 8.4% Inj 100 1000 / 1000 MEQ In 1/2 Normal Saline Inj 900 ML @ 50 mls/hr IV.CONT . Q20H [facility] Rx#:[id number] Oral 520 / 520 450 / 450 Output: Urine 650 / 650 1400 / 1400 Hemodialysis Amount 3000 / 3000 Other: # Bowel Movements 0 1 Narrative: GENERAL: NAD SKIN: Warm and dry. HEAD: Normocephalic. EYES: No scleral icterus. No injection or drainage. NECK: Supple, trachea midline. No JVD or lymphadenopathy. CARDIOVASCULAR: Regular rate and rhythm without murmurs, gallops, or rubs. RESPIRATORY: Breath sounds equal bilaterally. No accessory muscle use. GASTROINTESTINAL: Abdomen soft, non-tender, nondistended. MUSCULOSKELETAL: No cyanosis, or edema. BACK: Nontender without obvious deformity. No CVA tenderness. - Urinary Catheter Management Indwelling Urethral Catheter Cath placed during this visit: yes Urethral indwelling: No Reason for continuing: Chronic Urinary Retention Insertion date: 03/22/18 Insertion time: 00:00 Results - Labs CBC & Chem 7: 03/29/18 01:58 03/31/18 06:36 Assessment and Plan - Plan 47-year-old male admitted secondary to acute renal failure and acute liver failure Dialysis to continue,. M/W/F. Nephrology following. Acute renal failure Avoid nephrotoxins Continue to monitor renal function Nephrology ff had hemodialysis today Sunday, April 01, 2018 Creatinine down to 9.57 Toxic encephalopathy/drug overdose-resolved Polysubstance abuse Cessation recommended Transaminitis Hepatitis C Liver failure Follow LFTs Headache Treat with Tylenol as needed Bilateral lower extremity weakness Rhabdomyolysis MRI of lumbar spine shows no acute pathology to explain symptoms Elevated CK 2/2 rhabdomyolysis, however due to patient's current diagnosis of acute renal failure requiring hemodialysis, patient is currently on low rate IV fluid hydration Continue physical therapy DVT prophylaxis SCDs
[2018-04-01 15:22] LABS: Alanine Aminotransferase 77 U/L (12-78); Albumin 2.5 g/dL (3.4-5.0); Alkaline Phosphatase 51 U/L (45-117); Anion Gap 7 meq/L (5-15); Aspartate Aminotransferase 24 U/L (15-37); Blood Urea Nitrogen 46 mg/dL (7-18); Calcium 8.5 mg/dL (8.5-10.1); Carbon Dioxide 31.9 meq/L (21.0-32.0); Chloride 102 meq/L (98-107); Glomerular Filtration Rate 8 mL/min (>89); Glucose,Random 135 mg/dL (74-106); Potassium 4.8 meq/L (3.5-5.1); Sodium 141 meq/L (136-145)
--- NOTE | 2018-04-01 15:38 | P.PNNP ---
Subjective Interval history: Seen during hemodialysis tolerating well. Complains of lower extremity pain. <Olga Villatoro - Last Filed: 04/01/18 15:33> Physical Exam Vital signs: Vital Signs 03/31/18 16:00 03/31/18 20:00 04/01/18 00:00 Temperature 98.6 F 98.0 F 98.3 F Pulse Rate 69 80 74 Respiratory Rate 16 18 Blood Pressure 135/83 167/84 H 187/91 H Pulse Oximetry 94 L 94 L 95 04/01/18 04:00 04/01/18 08:00 04/01/18 12:00 Temperature 99.0 F 97.8 F 97.1 F L Pulse Rate 85 84 88 Respiratory Rate 17 18 18 Blood Pressure 173/86 H 152/86 H 154/82 H Pulse Oximetry 93 L 90 L 90 L Intake & Output 03/31/18 04/01/18 04/01/18 18:59 06:59 18:59 Intake Total 520 / 520 1450 / 1450 Output Total 650 / 650 1400 / 1400 3000 / 3000 Balance -130 / -130 50 / 50 -3000 / -3000 Weight 98.2 kg Intake: IV 1000 / 1000 Sodium Bicarbonate 8.4% Inj 100 1000 / 1000 MEQ In 1/2 Normal Saline Inj 900 ML @ 50 mls/hr IV.CONT . Q20H LOWELL Rx#:[id number] Oral 520 / 520 450 / 450 Output: Urine 650 / 650 1400 / 1400 Hemodialysis Amount 3000 / 3000 Other: # Bowel Movements 0 1 - Constitutional no acute distress - Routine HEENT Exam Head: Present: normocephalic ENT: Present: mucous membranes moist - Routine Neck Exam Present: supple. Absent: JVD - Routine Respiratory Exam Present: CTA bilaterally. Absent: rales, rhonchi - Routine Cardiovascular Exam Present: RRR. Absent: murmur - Routine Abdominal Exam Present: soft, normoactive bowel sounds - Routine Extremities Exam Present: vascular access. Absent: edema - Routine Skin Exam Present: intact - Routine Neurological Exam Present: alert, oriented X3 - Routine Psychiatric Exam Present: cooperative - Urinary Catheter Management Indwelling Urethral Catheter Cath placed during this visit: yes Urethral indwelling: No Reason for continuing: Chronic Urinary Retention Insertion date: 03/22/18 Insertion time: 00:00 <Olga Villatoro - Last Filed: 04/01/18 15:33> Vital signs: Vital Signs 03/31/18 20:00 04/01/18 00:00 04/01/18 04:00 Temperature 98.0 F 98.3 F 99.0 F Pulse Rate 80 74 85 Respiratory Rate 18 17 Blood Pressure 167/84 H 187/91 H 173/86 H Pulse Oximetry 94 L 95 93 L 04/01/18 08:00 04/01/18 12:00 04/01/18 18:00 Temperature 97.8 F 97.1 F L 98.3 F Pulse Rate 84 88 76 Respiratory Rate 18 18 18 Blood Pressure 152/86 H 154/82 H 160/83 H Pulse Oximetry 90 L 90 L 90 L Intake & Output 03/31/18 04/01/18 04/01/18 18:59 06:59 18:59 Intake Total 520 / 520 1450 / 1450 Output Total 650 / 650 1400 / 1400 3000 / 3000 Balance -130 / -130 50 / 50 -3000 / -3000 Weight 98.2 kg Intake: IV 1000 / 1000 Sodium Bicarbonate 8.4% Inj 100 1000 / 1000 MEQ In 1/2 Normal Saline Inj 900 ML @ 50 mls/hr IV.CONT . Q20H LOWE[facility] Rx#:[id number] Oral 520 / 520 450 / 450 Output: Urine 650 / 650 1400 / 1400 Hemodialysis Amount 3000 / 3000 Other: # Bowel Movements 0 1 - Urinary Catheter Management Indwelling Urethral Catheter Cath placed during this visit: no <Amira Stewart - Last Filed: 04/01/18 18:58> Assessment and Plan - Assessment (1) Acute kidney injury Code(s): N17.9 - Acute kidney failure, unspecified Status: Acute Plan: Patient has acute renal failure along with liver failure and had not been passing any urine CPKs are elevated on day of consult Has acute tubular necrosis with Rhabdomyolysis Ultrasound showed echogenic kidneys Hemodialysis started on 03/21 Creatinine starting to improve at 7.37 from 9.57 UOP improving with 2.1 L/ 24 hours. Hyperkalemia resolved. Renal diet. Hemodialysis today with 3 liters of fluid removed Avoid nephrotoxins. Continue to monitor urinary output, BMP, and watch for renal recovery Creatinine and urinary output improving. . (2) Hypertension Code(s): I10 - Essential (primary) hypertension Status: Acute Plan: Will monitor On hydralazine increased yesterday <Olga Villatoro - Last Filed: 04/01/18 15:33> - Assessment (1) Acute kidney injury Code(s): N17.9 - Acute kidney failure, unspecified Status: Acute (2) Hypertension Code(s): I10 - Essential (primary) hypertension Status: Acute - Attending Attestation Patient seen and examined, agree with above. No improvement in the renal function so far. <Amira Stewart - Last Filed: 04/01/18 18:58>
--- NOTE | 2018-04-01 22:47 | CT ---
EXAM DATE: 04/01/2018 10:20 PM EDT AGE/SEX: 47 years / Male INDICATIONS: Cephalgia. CLINICAL DATA: This is the patient's initial encounter. Patient reports that signs and symptoms have been present for 1 month and indicates a pain score of 8/10. MEDICAL/SURGICAL HISTORY: Renal failure, acute. IV drug use. None. RADIATION DOSE: 42.43 CTDI (mGy) ; Patient motion COMPARISON: No prior exams available for comparison. TECHNIQUE: CT of the head without contrast. Using automated exposure control and adjustment of the mA and/or kV according to patient size, radiation dose was kept as low as reasonably achievable to ob tain optimal diagnostic quality images. DICOM format image data is available electronically for revi ew and comparison. FINDINGS: Cerebrum: The ventricles are normal for age. No evidence of midline shift, mass lesion, hemorrhage o r acute infarction. No extraaxial fluid collections are seen. Posterior Fossa: The cerebellum and brainstem are intact. The 4th ventricle is midline. The cerebe llopontine angle is unremarkable. Extracranial: The visualized portion of the orbits is intact. Skull: The calvaria is intact. No evidence of skull fracture. CONCLUSION: 1. No acute intracranial abnormality. Electronically signed by: Justyn Malin MD 04/01/2018 10:46 PM EDT
--- NOTE | 2018-04-02 09:43 | P.PNNP ---
Subjective Interval history: Sitting up eating breakfast. Complains of migraine headache coming on. Hemodialysis yesterday. <Olga Villatoro - Last Filed: 04/02/18 09:38> Physical Exam Vital signs: Vital Signs 04/01/18 12:00 04/01/18 18:00 04/01/18 20:00 Temperature 97.1 F L 98.3 F 98.4 F Pulse Rate 88 76 76 Respiratory Rate 18 18 18 Blood Pressure 154/82 H 160/83 H 175/79 H Pulse Oximetry 90 L 90 L 92 L 04/02/18 00:00 04/02/18 04:00 04/02/18 06:34 Temperature 98.2 F 98.2 F Pulse Rate 77 82 Respiratory Rate 18 18 20 Blood Pressure 152/70 H 135/76 Pulse Oximetry 92 L 91 L Intake & Output 04/01/18 04/02/18 04/02/18 18:59 06:59 18:59 Intake Total 960 / 960 Output Total 3000 / 3000 1300 / 1300 Balance -3000 / -3000 -340 / -340 Weight 96.3 kg Intake: Oral 960 / 960 Output: Urine 1300 / 1300 Hemodialysis Amount 3000 / 3000 Other: # Voids 2 Date of Last Bowel Movement 03/27/18 04/01/18 # Bowel Movements 1 - Constitutional no acute distress - Routine HEENT Exam Head: Present: normocephalic ENT: Present: mucous membranes moist - Routine Neck Exam Present: supple. Absent: JVD - Routine Respiratory Exam Present: decreased breath sounds. Absent: rales, rhonchi - Routine Cardiovascular Exam Present: RRR - Routine Abdominal Exam Present: soft, normoactive bowel sounds - Routine Extremities Exam Present: edema Comments: mild lower extremity edema - Routine Skin Exam Present: intact, dry, warm - Routine Neurological Exam Present: alert, oriented X3 - Routine Psychiatric Exam Present: cooperative - Urinary Catheter Management Indwelling Urethral Catheter Cath placed during this visit: yes Urethral indwelling: No Reason for continuing: Chronic Urinary Retention Insertion date: 03/22/18 Insertion time: 00:00 <Olga Villatoro - Last Filed: 04/02/18 09:38> Vital signs: Vital Signs 04/01/18 20:00 04/02/18 00:00 04/02/18 04:00 Temperature 98.4 F 98.2 F 98.2 F Pulse Rate 76 77 82 Respiratory Rate 18 Blood Pressure 175/79 H 152/70 H 135/76 Pulse Oximetry 92 L 92 L 91 L 04/02/18 06:34 04/02/18 08:00 04/02/18 12:00 Temperature 98.0 F 97.9 F Pulse Rate 75 73 Respiratory Rate 20 16 16 Blood Pressure 160/74 H 168/85 H Pulse Oximetry 95 94 L Intake & Output 04/01/18 04/02/18 04/02/18 18:59 06:59 18:59 Intake Total 1960 / 1960 Output Total 3000 / 3000 1300 / 1300 Balance -3000 / -3000 660 / 660 Weight 96.3 kg Intake: IV 1000 / 1000 Sodium Bicarbonate 8.4% Inj 100 1000 / 1000 MEQ In 1/2 Normal Saline Inj 900 ML @ 50 mls/hr IV.CONT . Q20H LOWE[facility] Rx#:[id number] Oral 960 / 960 Output: Urine 1300 / 1300 Hemodialysis Amount 3000 / 3000 Other: # Voids 2 Date of Last Bowel Movement 03/27/18 04/01/18 # Bowel Movements 1 - Urinary Catheter Management Indwelling Urethral Catheter Cath placed during this visit: no <Amira Stewart - Last Filed: 04/02/18 18:30> Assessment and Plan - Assessment (1) Acute kidney injury Code(s): N17.9 - Acute kidney failure, unspecified Status: Acute Plan: Patient has acute renal failure along with liver failure and had not been passing any urine CPKs are elevated on day of consult Has acute tubular necrosis with Rhabdomyolysis Ultrasound showed echogenic kidneys Hemodialysis started on 03/21 Creatinine starting to improve at 7.37 from 9.57 yesterday UOP improving with 1.3 L/ 24 hours. Hyperkalemia resolved. Renal diet. Hemodialysis yesterday with 3 liters of fluid removed Avoid nephrotoxins. Continue to monitor urinary output, BMP, and watch for renal recovery Labs in AM . (2) Hypertension Code(s): I10 - Essential (primary) hypertension Status: Acute Plan: Hypertension is improving but still elevated Hydralazine increased - Plan . <Olga Villatoro - Last Filed: 04/02/18 09:38> - Assessment (1) Acute kidney injury Code(s): N17.9 - Acute kidney failure, unspecified Status: Acute (2) Hypertension Code(s): I10 - Essential (primary) hypertension Status: Acute - Attending Attestation Patient seen and examined, agree with above. Urine out put is better, Still has elevated Creatinine. Increasing edema, D/C IVF. Watch for renal recovery. <Amira Stewart - Last Filed: 04/02/18 18:30>
[2018-04-02] MEDS: Calcium Carbonate 500 MG Tablet PO SCH ×2 (11:01→23:04)
[2018-04-02] MEDS: Sodium Bicarbonate 8.4% Inj 100 MEQ in Sodium Chloride 0.45 % Inj 900 ML IV.CONT SCH (11:01)
[2018-04-02] MEDS: Senna/Docusate Sodium 8.6/50 MG Tablet PO SCH (11:01)
[2018-04-02] MEDS: Gabapentin 100 MG Capsule PO SCH ×3 (11:01→17:15)
[2018-04-02 11:53] LABS: Alanine Aminotransferase 74 U/L (12-78); Albumin 2.6 g/dL (3.4-5.0); Alkaline Phosphatase 52 U/L (45-117); Anion Gap 10 meq/L (5-15); Aspartate Aminotransferase 23 U/L (15-37); Blood Urea Nitrogen 58 mg/dL (7-18); Calcium 8.8 mg/dL (8.5-10.1); Carbon Dioxide 28.6 meq/L (21.0-32.0); Chloride 102 meq/L (98-107); Glomerular Filtration Rate 7 mL/min (>89); Glucose,Random 95 mg/dL (74-106); Potassium 5.4 meq/L (3.5-5.1); Sodium 141 meq/L (136-145); Total Protein 6.4 g/dL (6.4-8.2)
--- NOTE | 2018-04-02 12:04 | P.PN ---
Subjective Interval history: Follow-up acute renal injury requiring hemodialysis April 01, 2018-patient seen and examined, returned from hemodialysis center. Complains of headaches. No other issues. April 02, 2018-patient seen and examined, still complaining of migraine headache. States, he also feels a little bit swollen especially in his lower extremities. Otherwise no other issues Physical Exam Vital signs: Vital Signs 04/01/18 12:00 04/01/18 18:00 04/01/18 20:00 Temperature 97.1 F L 98.3 F 98.4 F Pulse Rate 88 76 76 Respiratory Rate 18 18 Blood Pressure 154/82 H 160/83 H 175/79 H Pulse Oximetry 90 L 90 L 92 L 04/02/18 00:00 04/02/18 04:00 04/02/18 06:34 Temperature 98.2 F 98.2 F Pulse Rate 77 82 Respiratory Rate 20 Blood Pressure 152/70 H 135/76 Pulse Oximetry 92 L 91 L Intake & Output 04/01/18 04/02/18 04/02/18 18:59 06:59 18:59 Intake Total 1960 / 1960 Output Total 3000 / 3000 1300 / 1300 Balance -3000 / -3000 660 / 660 Weight 96.3 kg Intake: IV 1000 / 1000 Sodium Bicarbonate 8.4% Inj 100 1000 / 1000 MEQ In 1/2 Normal Saline Inj 900 ML @ 50 mls/hr IV.CONT . Q20H LOWE[facility] Rx#:[id number] Oral 960 / 960 Output: Urine 1300 / 1300 Hemodialysis Amount 3000 / 3000 Other: # Voids 2 Date of Last Bowel Movement 03/27/18 04/01/18 # Bowel Movements 1 Narrative: GENERAL: NAD SKIN: Warm and dry. HEAD: Normocephalic. EYES: No scleral icterus. No injection or drainage. NECK: Supple, trachea midline. No JVD or lymphadenopathy. CARDIOVASCULAR: Regular rate and rhythm without murmurs, gallops, or rubs. RESPIRATORY: Breath sounds equal bilaterally. No accessory muscle use. GASTROINTESTINAL: Abdomen soft, non-tender, nondistended. MUSCULOSKELETAL: No cyanosis, or edema. BACK: Nontender without obvious deformity. No CVA tenderness. - Urinary Catheter Management Indwelling Urethral Catheter Cath placed during this visit: yes Urethral indwelling: No Reason for continuing: Chronic Urinary Retention Insertion date: 03/22/18 Insertion time: 00:00 Results - Labs CBC & Chem 7: 03/29/18 01:58 04/02/18 10:35 Laboratory Results - last 24 hr 04/01/18 04/02/18 14:14 10:35 Sodium 141 141 Potassium 4.8 5.4 H Chloride 102 102 Carbon Dioxide 31.9 28.6 Anion Gap 7 10 BUN 46 H 58 H Creatinine 7.37 H 8.75 H Estimated GFR 8 L 7 L Random Glucose 135 H 95 Calcium 8.5 8.8 Total Bilirubin 0.4 0.4 AST 24 23 ALT 77 74 Alkaline Phosphatase 51 52 Total Protein 6.0 L D 6.4 Albumin 2.5 L 2.6 L - Imaging Impressions Head CT 04/01/18 21:14 CONCLUSION: 1. No acute intracranial abnormality. Assessment and Plan - Plan 47-year-old male admitted secondary to acute renal failure and acute liver failure Dialysis to continue,. M/W/F. Nephrology following. Acute renal failure Avoid nephrotoxins Continue to monitor renal function Nephrology ff Creatinine down to 9.57 Toxic encephalopathy/drug overdose-resolved Polysubstance abuse Cessation recommended Transaminitis Hepatitis C Liver failure Follow LFTs Migraine headache Will try Imitrex Treat with Tylenol as needed Bilateral lower extremity weakness Rhabdomyolysis MRI of lumbar spine shows no acute pathology to explain symptoms Elevated CK 2/2 rhabdomyolysis, however due to patient's current diagnosis of acute renal failure requiring hemodialysis, continue with low rate IV fluid hydration Continue physical therapy DVT prophylaxis SCDs
[2018-04-02] MEDS: hydrALAZINE 50 MG Tablet PO SCH (12:12)
[2018-04-03] MEDS: Senna/Docusate Sodium 8.6/50 MG Tablet PO SCH ×3 (03:09→22:08)
[2018-04-03] MEDS: Calcium Carbonate 500 MG Tablet PO SCH ×2 (08:10→22:07)
[2018-04-03] MEDS: Gabapentin 100 MG Capsule PO SCH ×3 (08:10→17:58)
--- NOTE | 2018-04-03 12:11 | P.PN ---
Subjective Interval history: Follow-up acute renal injury requiring hemodialysis April 01, 2018-patient seen and examined, returned from hemodialysis center. Complains of headaches. No other issues. April 02, 2018-patient seen and examined, still complaining of migraine headache. States, he also feels a little bit swollen especially in his lower extremities. Otherwise no other issues April 03, 2018-patient seen and examined, complains of headaches this morning, THUS did not go for hemodialysis Physical Exam Vital signs: Vital Signs 04/02/18 16:00 04/02/18 20:00 04/02/18 21:21 Temperature 98.3 F 97.9 F Pulse Rate 73 79 Respiratory Rate 18 16 Blood Pressure 155/84 H 178/85 H Pulse Oximetry 93 L 93 L 98 04/02/18 23:53 04/03/18 04:00 04/03/18 08:00 Temperature 98.4 F 98.7 F 98.1 F Pulse Rate 69 85 85 Respiratory Rate 16 16 17 Blood Pressure 172/87 H 182/91 H 160/88 H Pulse Oximetry 93 L 91 L 88 L Intake & Output 04/02/18 04/03/18 04/03/18 18:59 06:59 18:59 Intake Total 960 / 960 600 / 600 Output Total 1675 / 1675 2750 / 2750 Balance -715 / -715 -2150 / -2150 Weight 94.4 kg Intake: Oral 960 / 960 600 / 600 Output: Urine 1675 / 1675 2750 / 2750 Other: Date of Last Bowel Movement 04/02/18 04/02/18 # Bowel Movements 2 Narrative: GENERAL: NAD SKIN: Warm and dry. HEAD: Normocephalic. EYES: No scleral icterus. No injection or drainage. NECK: Supple, trachea midline. No JVD or lymphadenopathy. CARDIOVASCULAR: Regular rate and rhythm without murmurs, gallops, or rubs. RESPIRATORY: Breath sounds equal bilaterally. No accessory muscle use. GASTROINTESTINAL: Abdomen soft, non-tender, nondistended. MUSCULOSKELETAL: No cyanosis, or edema. BACK: Nontender without obvious deformity. No CVA tenderness. - Urinary Catheter Management Indwelling Urethral Catheter Cath placed during this visit: yes Urethral indwelling: No Reason for continuing: Not indwelling catheter Insertion date: 03/22/18 Insertion time: 00:00 Results - Labs CBC & Chem 7: 03/29/18 01:58 04/02/18 10:35 Assessment and Plan - Plan 47-year-old male admitted secondary to acute renal failure and acute liver failure Dialysis to continue,. M/W/F. Nephrology following. Acute renal failure Avoid nephrotoxins Continue to monitor renal function Nephrology ff Creatinine 8.75 Toxic encephalopathy/drug overdose-resolved Polysubstance abuse Cessation recommended Transaminitis Hepatitis C Liver failure Follow LFTs Migraine headache Give Imitrex x 1 Treat with Tylenol as needed Bilateral lower extremity weakness Rhabdomyolysis MRI of lumbar spine shows no acute pathology to explain symptoms Elevated CK 2/2 rhabdomyolysis, however due to patient's current diagnosis of acute renal failure requiring hemodialysis, continue with low rate IV fluid hydration Continue physical therapy DVT prophylaxis SCDs
--- NOTE | 2018-04-03 15:42 | P.PNNP ---
Subjective Interval history: Patient seen in AM, alert, has headache, not in distress. Physical Exam Vital signs: Vital Signs 04/02/18 16:00 04/02/18 20:00 04/02/18 21:21 Temperature 98.3 F 97.9 F Pulse Rate 73 79 Respiratory Rate 18 16 Blood Pressure 155/84 H 178/85 H Pulse Oximetry 93 L 93 L 98 04/02/18 23:53 04/03/18 04:00 04/03/18 08:00 Temperature 98.4 F 98.7 F 98.1 F Pulse Rate 69 85 85 Respiratory Rate 16 16 17 Blood Pressure 172/87 H 182/91 H 160/88 H Pulse Oximetry 93 L 91 L 88 L 04/03/18 12:00 Temperature 97.9 F Pulse Rate 96 H Respiratory Rate 18 Blood Pressure 172/87 H Pulse Oximetry 87 L Intake & Output 04/02/18 04/03/18 04/03/18 18:59 06:59 18:59 Intake Total 960 / 960 600 / 600 Output Total 1675 / 1675 2750 / 2750 Balance -715 / -715 -2150 / -2150 Weight 94.4 kg Intake: Oral 960 / 960 600 / 600 Output: Urine 1675 / 1675 2750 / 2750 Other: Date of Last Bowel Movement 04/02/18 04/02/18 # Bowel Movements 2 Narrative: GENERAL: NAD SKIN: Warm and dry. HEAD: Normocephalic. EYES: No scleral icterus. No injection or drainage. NECK: Supple, trachea midline. No JVD or lymphadenopathy. CARDIOVASCULAR: Regular rate and rhythm without murmurs, gallops, or rubs. RESPIRATORY: Breath sounds equal bilaterally. No accessory muscle use. GASTROINTESTINAL: Abdomen soft, non-tender, nondistended. MUSCULOSKELETAL: No cyanosis, or edema. BACK: Nontender without obvious deformity. No CVA tenderness. - Urinary Catheter Management Indwelling Urethral Catheter Cath placed during this visit: yes Urethral indwelling: No Reason for continuing: Not indwelling catheter Insertion date: 03/22/18 Insertion time: 00:00 Assessment and Plan - Assessment (1) Acute kidney injury Code(s): N17.9 - Acute kidney failure, unspecified Status: Acute Plan: Patient has acute renal failure along with liver failure and had not been passing any urine CPKs are elevated on day of consult Has acute tubular necrosis with Rhabdomyolysis Ultrasound showed echogenic kidneys Hemodialysis started on 03/21 Creatinine starting to improve at 7.37 from 9.57 yesterday UOP improving with 1.3 L/ 24 hours. Hyperkalemia is better with Renal diet. Avoid nephrotoxins. Continue to monitor urinary output, BMP, and watch for renal recovery HD is due today, patient is refusing due to headache. Will do HD in AM. . (2) Hypertension Code(s): I10 - Essential (primary) hypertension Status: Acute Plan: Hypertension is improving but still elevated Hydralazine increased - Plan .
[2018-04-03 23:50] LABS: Alanine Aminotransferase 62 U/L (12-78); Albumin 2.6 g/dL (3.4-5.0); Anion Gap 17 meq/L (5-15); Aspartate Aminotransferase 19 U/L (15-37); Blood Urea Nitrogen 79 mg/dL (7-18); Calcium 9.3 mg/dL (8.5-10.1); Carbon Dioxide 23.5 meq/L (21.0-32.0); Chloride 102 meq/L (98-107); Glomerular Filtration Rate 6 mL/min (>89); Glucose,Random 94 mg/dL (74-106); Phosphorus 7.6 mg/dL (2.5-4.9); Potassium 5.1 meq/L (3.5-5.1); Sodium 142 meq/L (136-145)
[2018-04-04 00:03] LABS: Alkaline Phosphatase 55 U/L (45-117); Total Protein 6.8 g/dL (6.4-8.2)
[2018-04-04] MEDS: Acetaminophen 325 MG Tablet PO PRN (08:40)
--- NOTE | 2018-04-04 09:08 | P.PNNP ---
Subjective Interval history: Seen during hemodialysis. Reports migraine headache, otherwise reports that he is doing better <Olga Villatoro - Last Filed: 04/04/18 08:59> Physical Exam Vital signs: Vital Signs 04/03/18 12:00 04/03/18 16:00 04/03/18 20:00 Temperature 97.9 F 98.1 F 98.3 F Pulse Rate 96 H 75 101 H Respiratory Rate 18 18 18 Blood Pressure 172/87 H 191/83 H 165/82 H Pulse Oximetry 87 L 93 L 92 L 04/04/18 00:00 04/04/18 03:00 04/04/18 04:00 Temperature 99 F 98.2 F Pulse Rate 86 92 H Respiratory Rate 18 18 Blood Pressure 173/93 H 181/87 H 172/87 H Pulse Oximetry 94 L 92 L Intake & Output 04/03/18 04/04/18 04/04/18 18:59 06:59 18:59 Intake Total 840 / 840 960 / 960 Output Total 3650 / 3650 3525 / 3525 Balance -2810 / -2810 -2565 / -2565 Weight 89.3 kg Intake: Oral 840 / 840 960 / 960 Output: Urine 3650 / 3650 3525 / 3525 Other: Date of Last Bowel Movement 04/03/18 # Bowel Movements 0 2 - Constitutional no acute distress - Routine HEENT Exam Head: Present: normocephalic ENT: Present: mucous membranes moist - Routine Neck Exam Present: supple. Absent: JVD - Routine Respiratory Exam Present: decreased breath sounds. Absent: rales, rhonchi, wheezes - Routine Cardiovascular Exam Present: RRR - Routine Abdominal Exam Present: soft, normoactive bowel sounds. Absent: tenderness - Routine Extremities Exam Present: edema, vascular access - Routine Skin Exam Present: dry, warm - Routine Neurological Exam Present: alert, oriented X3 - Routine Psychiatric Exam Present: cooperative - Urinary Catheter Management Indwelling Urethral Catheter Cath placed during this visit: yes Urethral indwelling: No Reason for continuing: Acute urinary retention Insertion date: 03/22/18 Insertion time: 00:00 <Olga Villatoro - Last Filed: 04/04/18 08:59> Vital signs: Vital Signs 04/04/18 12:00 04/04/18 16:00 04/04/18 20:00 Temperature 97.8 F 97.4 F L 98.1 F Pulse Rate 84 90 96 H Respiratory Rate 20 20 18 Blood Pressure 164/100 H 170/93 H 164/88 H Pulse Oximetry 92 L 93 L 93 L 04/05/18 00:00 04/05/18 04:00 04/05/18 04:51 Temperature 98.4 F 98.7 F Pulse Rate 76 94 H Respiratory Rate 18 18 10 L Blood Pressure 183/99 H 153/74 H Pulse Oximetry 94 L 93 L Intake & Output 04/04/18 04/05/18 04/05/18 18:59 06:59 18:59 Intake Total 2675 / 2675 720 / 720 Output Total 2300 / 2300 2200 / 2200 Balance 375 / 375 -1480 / -1480 Weight 89 kg Intake: Oral 2675 / 2675 720 / 720 Output: Urine 2200 / 2200 Stool 0 / 0 Hemodialysis Amount 2300 / 2300 Other: # Voids 0 # Bowel Movements 1 - Urinary Catheter Management Indwelling Urethral Catheter Cath placed during this visit: no <Amira Stewart - Last Filed: 04/05/18 10:21> Assessment and Plan - Assessment (1) Acute kidney injury Code(s): N17.9 - Acute kidney failure, unspecified Status: Acute Plan: Patient has acute renal failure along with liver failure and had not been passing any urine CPKs are elevated on day of consult Has acute tubular necrosis with Rhabdomyolysis Ultrasound showed echogenic kidneys Hemodialysis started on 03/21 Creatinine 9.83 yesterday UOP improving with 7 L/ 24 hours. Hyperkalemia is better with Renal diet. Avoid nephrotoxins. Will remove indwelling valle catheter will continue to monitor I+O Continue to monitor urinary output, BMP, and watch for renal recovery Seen during hemodialysis, will remove fluid as tolerated . (2) Hypertension Code(s): I10 - Essential (primary) hypertension Status: Acute Plan: Hypertensive, amlodipine added. <Olga Villatoro - Last Filed: 04/04/18 08:59> - Assessment (1) Acute kidney injury Code(s): N17.9 - Acute kidney failure, unspecified Status: Acute (2) Hypertension Code(s): I10 - Essential (primary) hypertension Status: Acute - Attending Attestation Patient seen and examined, agree with above. Missed HD yesterday due to headache, HD now, Watch for renal recovery. <Amira Stewart - Last Filed: 04/05/18 10:21>
[2018-04-04] MEDS: Gabapentin 100 MG Capsule PO SCH ×3 (09:10→17:04)
--- NOTE | 2018-04-04 10:31 | P.PN ---
Subjective Interval history: Follow-up acute renal injury requiring hemodialysis April 01, 2018-patient seen and examined, returned from hemodialysis center. Complains of headaches. No other issues. April 02, 2018-patient seen and examined, still complaining of migraine headache. States, he also feels a little bit swollen especially in his lower extremities. Otherwise no other issues April 03, 2018-patient seen and examined, complains of headaches this morning, THUS did not go for hemodialysis April 04, 2018-patient seen and examined, refused hemodialysis yesterday. Reports some improvement of migraine headache and no other issues. Physical Exam Vital signs: Vital Signs 04/03/18 12:00 04/03/18 16:00 04/03/18 20:00 Temperature 97.9 F 98.1 F 98.3 F Pulse Rate 96 H 75 101 H Respiratory Rate 18 18 18 Blood Pressure 172/87 H 191/83 H 165/82 H Pulse Oximetry 87 L 93 L 92 L 04/04/18 00:00 04/04/18 03:00 04/04/18 04:00 Temperature 99 F 98.2 F Pulse Rate 86 92 H Respiratory Rate 18 Blood Pressure 173/93 H 181/87 H 172/87 H Pulse Oximetry 94 L 92 L 04/04/18 08:00 Temperature 98.2 F Pulse Rate 87 Respiratory Rate 20 Blood Pressure 148/78 H Pulse Oximetry 90 L Intake & Output 04/03/18 04/04/18 04/04/18 18:59 06:59 18:59 Intake Total 840 / 840 960 / 960 Output Total 3650 / 3650 3525 / 3525 Balance -2810 / -2810 -2565 / -2565 Weight 89.3 kg Intake: Oral 840 / 840 960 / 960 Output: Urine 3650 / 3650 3525 / 3525 Other: Date of Last Bowel Movement 04/03/18 # Bowel Movements 0 2 Narrative: GENERAL: NAD SKIN: Warm and dry. HEAD: Normocephalic. EYES: No scleral icterus. No injection or drainage. NECK: Supple, trachea midline. No JVD or lymphadenopathy. CARDIOVASCULAR: Regular rate and rhythm without murmurs, gallops, or rubs. RESPIRATORY: Breath sounds equal bilaterally. No accessory muscle use. GASTROINTESTINAL: Abdomen soft, non-tender, nondistended. MUSCULOSKELETAL: No cyanosis, or edema. BACK: Nontender without obvious deformity. No CVA tenderness. - Urinary Catheter Management Indwelling Urethral Catheter Cath placed during this visit: yes Urethral indwelling: No Reason for continuing: Acute urinary retention Insertion date: 03/22/18 Insertion time: 00:00 Results - Labs CBC & Chem 7: 03/29/18 01:58 04/03/18 22:06 Laboratory Results - last 24 hr 04/03/18 22:06 Sodium 142 Potassium 5.1 Chloride 102 Carbon Dioxide 23.5 Anion Gap 17 H BUN 79 H Creatinine 9.87 H Estimated GFR 6 L Random Glucose 94 Calcium 9.3 Phosphorus 7.6 H Total Bilirubin 0.4 AST 19 ALT 62 Alkaline Phosphatase 55 Total Protein 6.8 Albumin 2.6 L Assessment and Plan - Plan 47-year-old male admitted secondary to acute renal failure and acute liver failure Dialysis to continue,. M/W/F. Nephrology following. Acute renal failure Avoid nephrotoxins Continue to monitor renal function Nephrology ff Patient did refuse hemodialysis on April 03, 2018 Toxic encephalopathy/drug overdose-resolved Polysubstance abuse Cessation recommended Transaminitis Hepatitis C Liver failure Follow LFTs Migraine headache He was treated on April 03, 2018 with Imitrex x 1 Treat with Tylenol as needed Bilateral lower extremity weakness Rhabdomyolysis MRI of lumbar spine shows no acute pathology to explain symptoms Elevated CK 2/2 rhabdomyolysis, however due to patient's current diagnosis of acute renal failure requiring hemodialysis, continue with low rate IV fluid hydration Continue physical therapy DVT prophylaxis SCDs
[2018-04-04] MEDS: Senna/Docusate Sodium 8.6/50 MG Tablet PO SCH ×2 (13:34→21:42)
[2018-04-04] MEDS: Calcium Carbonate 500 MG Tablet PO SCH ×2 (13:35→21:42)
[2018-04-04] MEDS: Butalbital/APAP/Caff 50/325/40 MG Tablet PO PRN (17:04)
[2018-04-05] MEDS: Butalbital/APAP/Caff 50/325/40 MG Tablet PO PRN ×2 (06:18→22:12)
[2018-04-05] MEDS: Gabapentin 100 MG Capsule PO SCH ×3 (09:18→17:02)
[2018-04-05] MEDS: amLODIPine 10 MG Tablet PO SCH (09:18)
[2018-04-05] MEDS: Calcium Carbonate 500 MG Tablet PO SCH ×2 (09:19→20:54)
[2018-04-05] MEDS: Senna/Docusate Sodium 8.6/50 MG Tablet PO SCH ×2 (09:19→20:54)
--- NOTE | 2018-04-05 10:11 | P.PN ---
Subjective Interval history: Follow-up acute renal injury requiring hemodialysis April 01, 2018-patient seen and examined, returned from hemodialysis center. Complains of headaches. No other issues. April 02, 2018-patient seen and examined, still complaining of migraine headache. States, he also feels a little bit swollen especially in his lower extremities. Otherwise no other issues April 03, 2018-patient seen and examined, complains of headaches this morning, THUS did not go for hemodialysis April 04, 2018-patient seen and examined, refused hemodialysis yesterday. Reports some improvement of migraine headache and no other issues. April 05, 2018-patient seen and examined, states his migraine headaches have improved. No other issues this a.m. Physical Exam Vital signs: Vital Signs 04/04/18 12:00 04/04/18 16:00 04/04/18 20:00 Temperature 97.8 F 97.4 F L 98.1 F Pulse Rate 84 90 96 H Respiratory Rate 20 20 18 Blood Pressure 164/100 H 170/93 H 164/88 H Pulse Oximetry 92 L 93 L 93 L 04/05/18 00:00 04/05/18 04:00 04/05/18 04:51 Temperature 98.4 F 98.7 F Pulse Rate 76 94 H Respiratory Rate 18 18 10 L Blood Pressure 183/99 H 153/74 H Pulse Oximetry 94 L 93 L Intake & Output 04/04/18 04/05/18 04/05/18 18:59 06:59 18:59 Intake Total 2675 / 2675 720 / 720 Output Total 2300 / 2300 2200 / 2200 Balance 375 / 375 -1480 / -1480 Weight 89 kg Intake: Oral 2675 / 2675 720 / 720 Output: Urine 2200 / 2200 Stool 0 / 0 Hemodialysis Amount 2300 / 2300 Other: # Voids 0 # Bowel Movements 1 Narrative: GENERAL: NAD SKIN: Warm and dry. HEAD: Normocephalic. EYES: No scleral icterus. No injection or drainage. NECK: Supple, trachea midline. No JVD or lymphadenopathy. CARDIOVASCULAR: Regular rate and rhythm without murmurs, gallops, or rubs. RESPIRATORY: Breath sounds equal bilaterally. No accessory muscle use. GASTROINTESTINAL: Abdomen soft, non-tender, nondistended. MUSCULOSKELETAL: No cyanosis, or edema. BACK: Nontender without obvious deformity. No CVA tenderness. - Urinary Catheter Management Indwelling Urethral Catheter Cath placed during this visit: yes Urethral indwelling: No Reason for continuing: Acute urinary retention Insertion date: 03/22/18 Insertion time: 00:00 Results - Labs CBC & Chem 7: 03/29/18 01:58 04/03/18 22:06 Assessment and Plan - Plan 47-year-old male admitted secondary to acute renal failure and acute liver failure Dialysis to continue,. M/W/F. Nephrology following. Acute renal failure Avoid nephrotoxins Continue to monitor renal function Nephrology ff Patient did refuse hemodialysis on April 03, 2018 Toxic encephalopathy/drug overdose-resolved Polysubstance abuse Cessation recommended Transaminitis Hepatitis C Liver failure Follow LFTs Migraine headache Currently on Fioricet as needed Treat with Tylenol as needed Bilateral lower extremity weakness Rhabdomyolysis MRI of lumbar spine shows no acute pathology to explain symptoms Elevated CK 2/2 rhabdomyolysis, however due to patient's current diagnosis of acute renal failure requiring hemodialysis, continue with low rate IV fluid hydration Continue physical therapy DVT prophylaxis SCDs
--- NOTE | 2018-04-05 12:06 | P.PNNP ---
Subjective Interval history: Patient is in good spirits. Reports that he feels much better today. Lower extremity swelling has improved. <Olga Villatoro - Last Filed: 04/05/18 12:01> Physical Exam Vital signs: Vital Signs 04/04/18 16:00 04/04/18 20:00 04/05/18 00:00 Temperature 97.4 F L 98.1 F 98.4 F Pulse Rate 90 96 H 76 Respiratory Rate 20 18 18 Blood Pressure 170/93 H 164/88 H 183/99 H Pulse Oximetry 93 L 93 L 94 L 04/05/18 04:00 04/05/18 04:51 Temperature 98.7 F Pulse Rate 94 H Respiratory Rate 18 10 L Blood Pressure 153/74 H Pulse Oximetry 93 L Intake & Output 04/04/18 04/05/18 04/05/18 18:59 06:59 18:59 Intake Total 2675 / 2675 720 / 720 Output Total 2300 / 2300 2200 / 2200 Balance 375 / 375 -1480 / -1480 Weight 89 kg Intake: Oral 2675 / 2675 720 / 720 Output: Urine 2200 / 2200 Stool 0 / 0 Hemodialysis Amount 2300 / 2300 Other: # Voids 0 Date of Last Bowel Movement 04/03/18 # Bowel Movements 1 - Constitutional no acute distress - Routine HEENT Exam Head: Present: normocephalic ENT: Present: mucous membranes moist - Routine Neck Exam Present: supple. Absent: JVD - Routine Respiratory Exam Present: decreased breath sounds. Absent: rales, rhonchi, wheezes - Routine Cardiovascular Exam Present: RRR. Absent: murmur - Routine Abdominal Exam Present: soft, normoactive bowel sounds - Routine Extremities Exam Present: vascular access - Routine Skin Exam Present: intact - Routine Neurological Exam Present: alert, oriented X3 - Urinary Catheter Management Indwelling Urethral Catheter Cath placed during this visit: yes Urethral indwelling: No Reason for continuing: Acute urinary retention Insertion date: 03/22/18 Insertion time: 00:00 <Olga Villatoro - Last Filed: 04/05/18 12:01> Vital signs: Vital Signs 04/05/18 12:00 04/05/18 16:00 04/05/18 20:00 Temperature 98.1 F 97.9 F 98.2 F Pulse Rate 88 99 H 95 H Respiratory Rate 20 20 18 Blood Pressure 163/89 H 169/96 H 153/77 H Pulse Oximetry 90 L 94 L 94 L 04/06/18 00:00 04/06/18 04:00 04/06/18 08:00 Temperature 98.3 F 97.6 F 97.9 F Pulse Rate 92 H 90 85 Respiratory Rate 18 18 17 Blood Pressure 155/76 H 155/88 H 162/87 H Pulse Oximetry 94 L 93 L 92 L Intake & Output 04/05/18 04/06/18 04/06/18 18:59 06:59 18:59 Intake Total 480 / 480 Output Total 125 / 125 2401 / 2401 Balance 355 / 355 -2401 / -2401 Weight 88.2 kg Intake: Oral 480 / 480 Output: Urine 125 / 125 2400 / 2400 Stool Other: Date of Last Bowel Movement 04/03/18 04/05/18 # Bowel Movements 1 - Urinary Catheter Management Indwelling Urethral Catheter Cath placed during this visit: no <Amira Stewart - Last Filed: 04/06/18 10:46> Assessment and Plan - Assessment (1) Acute kidney injury Code(s): N17.9 - Acute kidney failure, unspecified Status: Acute Plan: Patient has acute renal failure along with liver failure and had not been passing any urine CPKs are elevated on day of consult Has acute tubular necrosis with Rhabdomyolysis Ultrasound showed echogenic kidneys Hemodialysis started on 03/21 Avoid nephrotoxins. Continue to monitor urinary output, BMP, and watch for renal recovery No new labs today, labs in AM Next planned hemodialysis will be on Friday (2) Hypertension Code(s): I10 - Essential (primary) hypertension Status: Acute Plan: Will continue to monitor On amlodipine and hydralazine <Olga Villatoro - Last Filed: 04/05/18 12:01> - Assessment (1) Acute kidney injury Code(s): N17.9 - Acute kidney failure, unspecified Status: Acute (2) Hypertension Code(s): I10 - Essential (primary) hypertension Status: Acute - Attending Attestation Patient seen and examined, agree with above. Watch for renal recovery. HD to continue as needed. Dr. Recio will follow from AM. <Amira Stewart - Last Filed: 04/06/18 10:46>
[2018-04-06] MEDS: Calcium Carbonate 500 MG Tablet PO SCH ×2 (09:09→21:52)
[2018-04-06] MEDS: Butalbital/APAP/Caff 50/325/40 MG Tablet PO PRN ×2 (09:10→21:52)
[2018-04-06] MEDS: Gabapentin 100 MG Capsule PO SCH ×3 (09:10→17:16)
[2018-04-06] MEDS: amLODIPine 10 MG Tablet PO SCH (09:10)
[2018-04-06] MEDS: Senna/Docusate Sodium 8.6/50 MG Tablet PO SCH ×2 (09:10→21:52)
[2018-04-06 10:44] LABS: Baso # (Auto) 0.1 th/mm3 (0.0-0.2); Eos # (Auto) 0.6 th/mm3 (0.0-0.4); Eos % (Auto) 7.8 % (0.0-4.0); Hematocrit 30.5 % (39.0-51.0); Hemoglobin 10.2 gm/dL (13.0-17.0); Lymph # (Auto) 1.6 th/mm3 (1.0-4.8); Lymph % (Auto) 21.7 % (9.0-44.0); Mean Corpuscular HGB Conc 33.6 % (32.0-36.0); Mean Corpuscular Hemoglobin 29.7 pg (27.0-34.0); Mean Corpuscular Volume 88.6 fL (80.0-100.0); Mean Platelet Volume 8.5 fL (7.0-11.0); Mono # (Auto) 0.6 th/mm3 (0.0-0.9); Mono % (Auto) 8.2 % (0.0-8.0); Neut # (Auto) 4.5 th/mm3 (1.8-7.7); Neut % (Auto) 61.3 % (16.0-70.0); Platelet Count 301 th/mm3 (150-450); Red Blood Count 3.44 mil/mm3 (4.50-5.90); White Blood Count 7.3 th/mm3 (4.0-11.0)
--- NOTE | 2018-04-06 10:46 | P.PNIM ---
Subjective Interval history: Reports that she has intermittent bilateral lower extremity pain and cramps. Is urinating quite a bit since the catheter was removed. Physical Exam Vital signs: Vital Signs 04/05/18 12:00 04/05/18 16:00 04/05/18 20:00 Temperature 98.1 F 97.9 F 98.2 F Pulse Rate 88 99 H 95 H Respiratory Rate 20 20 18 Blood Pressure 163/89 H 169/96 H 153/77 H Pulse Oximetry 90 L 94 L 94 L 04/06/18 00:00 04/06/18 04:00 04/06/18 08:00 Temperature 98.3 F 97.6 F 97.9 F Pulse Rate 92 H 90 85 Respiratory Rate 18 18 17 Blood Pressure 155/76 H 155/88 H 162/87 H Pulse Oximetry 94 L 93 L 92 L Intake & Output 04/05/18 04/06/18 04/06/18 18:59 06:59 18:59 Intake Total 480 / 480 Output Total 125 / 125 2401 / 2401 Balance 355 / 355 -2401 / -2401 Weight 88.2 kg Intake: Oral 480 / 480 Output: Urine 125 / 125 2400 / 2400 Stool Other: Date of Last Bowel Movement 04/03/18 04/05/18 # Bowel Movements 1 Narrative: GENERAL: This is a well-nourished, well-developed patient, in no apparent distress. CARDIOVASCULAR: Regular rate and rhythm without murmurs, gallops, or rubs. RESPIRATORY: Clear to auscultation. Breath sounds equal bilaterally. No wheezes , rales, or rhonchi. GASTROINTESTINAL: Abdomen soft, non-tender, nondistended. Normal active bowel sounds NEURO: Alert & Oriented x4 to person, place, time, situation. Moves all ext x4 - Urinary Catheter Management Indwelling Urethral Catheter Cath placed during this visit: yes, but has since been removed by the nurse Urethral indwelling: No Reason for continuing: Not indwelling catheter Insertion date: 03/22/18 Insertion time: 00:00 Removal date: 04/05/18 Results - Labs CBC & Chem 7: 03/29/18 01:58 04/03/18 22:06 Assessment and Plan - Plan 47-year-old male admitted secondary to acute renal failure and acute liver failure Dialysis to continue,. Friday and Saturdays. Nephrology following. Acute renal failure Avoid nephrotoxins Continue to monitor renal function, check BUN/creatinine today Nephrology following Patient did refuse hemodialysis on April 03, 2018 due to migraine headache and was switched over to Friday schedule. Toxic encephalopathy/drug overdose-resolved Polysubstance abuse Cessation recommended Transaminitis Hepatitis C Liver failure Improving. Migraine headache Currently on Fioricet as needed Treat with Tylenol as needed No active headaches today. Bilateral lower extremity weakness Rhabdomyolysis MRI of lumbar spine shows no acute pathology to explain symptoms Elevated CK 2/2 rhabdomyolysis, however due to patient's current diagnosis of acute renal failure requiring hemodialysis, continue with low rate IV fluid hydration Continue physical therapy Discharge Planning: Pending renal function recovery to determine if patient will need outpatient hemodialysis
[2018-04-06 11:15] LABS: Alanine Aminotransferase 48 U/L (12-78); Alkaline Phosphatase 50 U/L (45-117); Anion Gap 13 meq/L (5-15); Aspartate Aminotransferase 13 U/L (15-37); Blood Urea Nitrogen 61 mg/dL (7-18); Calcium 9.2 mg/dL (8.5-10.1); Carbon Dioxide 22.6 meq/L (21.0-32.0); Chloride 108 meq/L (98-107); Creatine Kinase 170 U/L (39-308); Glomerular Filtration Rate 7 mL/min (>89); Glucose,Random 121 mg/dL (74-106); Phosphorus 6.5 mg/dL (2.5-4.9); Potassium 4.3 meq/L (3.5-5.1); Sodium 144 meq/L (136-145); Total Protein 7.1 g/dL (6.4-8.2)
--- NOTE | 2018-04-06 18:16 | P.PNNP ---
Subjective Interval history: Patient has increased frequency of urine doing better Physical Exam Vital signs: Vital Signs 04/05/18 20:00 04/06/18 00:00 04/06/18 04:00 Temperature 98.2 F 98.3 F 97.6 F Pulse Rate 95 H 92 H 90 Respiratory Rate 18 18 18 Blood Pressure 153/77 H 155/76 H 155/88 H Pulse Oximetry 94 L 94 L 93 L 04/06/18 08:00 04/06/18 12:00 Temperature 97.9 F 98.3 F Pulse Rate 85 109 H Respiratory Rate 17 17 Blood Pressure 162/87 H 142/79 H Pulse Oximetry 92 L 93 L Intake & Output 04/05/18 04/06/18 04/06/18 18:59 06:59 18:59 Intake Total 480 / 480 Output Total 125 / 125 2401 / 2401 Balance 355 / 355 -2401 / -2401 Weight 88.2 kg Intake: Oral 480 / 480 Output: Urine 125 / 125 2400 / 2400 Stool / Other: Date of Last Bowel Movement 04/03/18 04/05/18 # Bowel Movements 1 - Constitutional no acute distress - Routine HEENT Exam Head: Present: normocephalic - Routine Neck Exam Present: supple - Routine Respiratory Exam Present: CTA bilaterally - Routine Cardiovascular Exam Present: RRR - Routine Abdominal Exam Present: soft, normoactive bowel sounds - Routine Extremities Exam Present: full ROM - Urinary Catheter Management Indwelling Urethral Catheter Cath placed during this visit: yes, but has since been removed by the nurse Urethral indwelling: No Reason for continuing: Not indwelling catheter Insertion date: 03/22/18 Insertion time: 00:00 Removal date: 04/05/18 Assessment and Plan - Assessment (1) Acute kidney injury Code(s): N17.9 - Acute kidney failure, unspecified Status: Acute - Plan . Patient is doing well increased urinary output however creatinine remains elevated next hemodialysis plan for tomorrow , follow BMP and wait for kidney functions to improve Acute renal failure due to rhabdomyolysis
[2018-04-07] MEDS: Butalbital/APAP/Caff 50/325/40 MG Tablet PO PRN (07:25)
[2018-04-07 08:49] LABS: Calcium 9.3 mg/dL (8.5-10.1); Carbon Dioxide 21.7 meq/L (21.0-32.0); Potassium 4.4 meq/L (3.5-5.1)
--- NOTE | 2018-04-07 09:34 | P.PNIM ---
Subjective Interval history: Complaining of lower extremity cramping and pain. In addition, reports he is still urinating without any difficulty. He is having dry peeling skin on the feet. Physical Exam Vital signs: Vital Signs 04/06/18 12:00 04/06/18 16:00 04/06/18 20:00 Temperature 98.3 F 97.1 F L 98.5 F Pulse Rate 109 H 121 H 108 H Respiratory Rate 17 18 18 Blood Pressure 142/79 H 163/92 H 178/90 H Pulse Oximetry 93 L 94 L 93 L 04/07/18 00:00 04/07/18 00:26 04/07/18 04:00 Temperature 98.4 F 98.3 F Pulse Rate 93 H 85 Respiratory Rate 20 18 18 Blood Pressure 164/88 H 156/77 H Pulse Oximetry 97 92 L Intake & Output 04/06/18 04/07/18 04/07/18 18:59 06:59 18:59 Intake Total 520 / 520 240 / 240 Output Total 1999 Balance 520 / 520 -1760 / -1760 Intake: Oral 520 / 520 240 / 240 Output: Urine 1999 Other: # Voids 2,300 1 # Bowel Movements 1 Narrative: GENERAL: This is a well-nourished, well-developed patient, in no apparent distress. CARDIOVASCULAR: Regular rate and rhythm without murmurs, gallops, or rubs. RESPIRATORY: Clear to auscultation. Breath sounds equal bilaterally. No wheezes , rales, or rhonchi. GASTROINTESTINAL: Abdomen soft, non-tender, nondistended. Normal active bowel sounds NEURO: Alert & Oriented x4 to person, place, time, situation. Moves all ext x4 SKIN: Dry peeling of the skin bilateral lower extremity and feet - Urinary Catheter Management Indwelling Urethral Catheter Cath placed during this visit: yes, but has since been removed by the nurse Urethral indwelling: No Reason for continuing: Not indwelling catheter Insertion date: 03/22/18 Insertion time: 00:00 Removal date: 04/05/18 Results - Labs CBC & Chem 7: 04/06/18 10:00 04/07/18 07:40 Laboratory Results - last 24 hr 04/06/18 04/06/18 04/07/18 07:00 10:00 07:40 WBC 7.3 RBC 3.44 L Hgb 10.2 L Hct 30.5 L MCV 88.6 MCH 29.7 MCHC 33.6 RDW 15.0 Plt Count 301 MPV 8.5 Neut % (Auto) 61.3 Lymph % (Auto) 21.7 [place] % (Auto) 8.2 H Eos % (Auto) 7.8 H Baso % (Auto) 1.0 Neut # (Auto) 4.5 Lymph # (Auto) 1.6 [place] # (Auto) 0.6 Eos # (Auto) 0.6 H Baso # (Auto) 0.1 WBC Differential . Differential Comment Auto diff final Sodium 144 144 Potassium 4.3 4.4 Chloride 108 H 109 H Carbon Dioxide 22.6 21.7 Anion Gap 13 13 BUN 61 H 70 H Creatinine 7.84 H 7.30 H Estimated GFR 7 L 8 L Random Glucose 121 H 83 Calcium 9.2 9.3 Phosphorus 6.5 H Total Bilirubin 0.4 AST 13 L ALT 48 Alkaline Phosphatase 50 Total Creatine Kinase 170 Total Protein 7.1 Albumin 3.0 L Assessment and Plan - Plan 47-year-old male admitted secondary to acute renal failure and acute liver failure Dialysis to continue,. Friday and Saturdays. Nephrology following. Acute renal failure Avoid nephrotoxins Continue to monitor renal function, check BUN/creatinine today which has been trending down Nephrology following Patient did refuse hemodialysis on April 03, 2018 due to migraine headache and was switched over to Friday schedule. For repeat hemodialysis today. Toxic encephalopathy/drug overdose-resolved Polysubstance abuse Cessation recommended Transaminitis Hepatitis C Liver failure Improving. Migraine headache Currently on Fioricet as needed Treat with Tylenol as needed Bilateral lower extremity weakness Rhabdomyolysis MRI of lumbar spine shows no acute pathology to explain symptoms Elevated CK 2/2 rhabdomyolysis, however due to patient's current diagnosis of acute renal failure requiring hemodialysis, continue with low rate IV fluid hydration Continue physical therapy Tinea pedalis -Lotrimin cream to the area twice daily Discharge Planning: Pending renal function recovery to determine if patient will need outpatient hemodialysis
[2018-04-07] MEDS: Gabapentin 100 MG Capsule PO SCH ×3 (12:50→18:29)
[2018-04-07] MEDS: Senna/Docusate Sodium 8.6/50 MG Tablet PO SCH ×2 (12:51→20:30)
[2018-04-07] MEDS: Calcium Carbonate 500 MG Tablet PO SCH ×2 (12:51→20:29)
[2018-04-07] MEDS: amLODIPine 10 MG Tablet PO SCH (12:51)
--- NOTE | 2018-04-07 15:12 | P.PNNP ---
Subjective Interval history: Patient having headache after dialysis Physical Exam Vital signs: Vital Signs 04/06/18 16:00 04/06/18 20:00 04/07/18 00:00 Temperature 97.1 F L 98.5 F 98.4 F Pulse Rate 121 H 108 H 93 H Respiratory Rate 18 18 20 Blood Pressure 163/92 H 178/90 H 164/88 H Pulse Oximetry 94 L 93 L 97 04/07/18 00:26 04/07/18 04:00 04/07/18 08:00 Temperature 98.3 F 97.5 F L Pulse Rate 85 86 Respiratory Rate 18 18 18 Blood Pressure 156/77 H 159/91 H Pulse Oximetry 92 L 94 L 04/07/18 12:41 Temperature 97.5 F L Pulse Rate 85 Respiratory Rate 18 Blood Pressure 151/86 H Pulse Oximetry 96 Intake & Output 04/06/18 04/07/18 04/07/18 18:59 06:59 18:59 Intake Total 520 / 520 240 / 240 Output Total 1999 Balance 520 / 520 -1760 / -1760 Intake: Oral 520 / 520 240 / 240 Output: Urine 1999 Other: # Voids 2,300 1 # Bowel Movements 1 - Constitutional no acute distress - Routine HEENT Exam Head: Present: normocephalic - Routine Neck Exam Present: supple - Routine Respiratory Exam Present: CTA bilaterally - Routine Cardiovascular Exam Present: RRR - Routine Abdominal Exam Present: soft, normoactive bowel sounds - Routine Neurological Exam Present: alert, oriented X3 - Urinary Catheter Management Indwelling Urethral Catheter Cath placed during this visit: yes, but has since been removed by the nurse Urethral indwelling: No Reason for continuing: Not indwelling catheter Insertion date: 03/22/18 Insertion time: 00:00 Removal date: 04/05/18 Assessment and Plan - Assessment (1) Acute kidney injury Code(s): N17.9 - Acute kidney failure, unspecified Status: Acute - Plan . Patient is doing well increased urinary output hemodialysis done earlier but cut short by the patient as having headache Patient creatinine is declining he may improve his acute renal failure it is resolving rhabdomyolysis May come off hemodialysis Monitor BMP
[2018-04-07] MEDS: Clotrimazole 1% Cream 15 GM Tube TOPICAL SCH (20:31)
[2018-04-08 07:36] LABS: Calcium 9.9 mg/dL (8.5-10.1); Carbon Dioxide 22.9 meq/L (21.0-32.0); Potassium 4.4 meq/L (3.5-5.1)
[2018-04-08] MEDS: Gabapentin 100 MG Capsule PO SCH ×3 (08:47→18:11)
[2018-04-08] MEDS: Calcium Carbonate 500 MG Tablet PO SCH ×2 (08:48→21:31)
[2018-04-08] MEDS: Senna/Docusate Sodium 8.6/50 MG Tablet PO SCH ×2 (08:48→21:31)
[2018-04-08] MEDS: amLODIPine 10 MG Tablet PO SCH (08:48)
[2018-04-08] MEDS: Clotrimazole 1% Cream 15 GM Tube TOPICAL SCH ×2 (08:48→21:33)
--- NOTE | 2018-04-08 10:03 | P.PNIM ---
Subjective Interval history: States that he is still having bilateral lower leg cramps. He is wanting more than [place] pills and asked about Dilaudid. Physical Exam Vital signs: Vital Signs 04/07/18 12:41 04/07/18 16:00 04/07/18 20:00 Temperature 97.5 F L 97.6 F 97.5 F L Pulse Rate 85 95 H 99 H Respiratory Rate 18 18 18 Blood Pressure 151/86 H 146/91 H 153/85 H Pulse Oximetry 96 95 97 04/08/18 00:00 04/08/18 04:00 04/08/18 08:00 Temperature 98.3 F 97.9 F 97.9 F Pulse Rate 91 H 89 82 Respiratory Rate 18 14 Blood Pressure 164/85 H 157/89 H 156/87 H Pulse Oximetry 97 96 95 04/08/18 08:47 Temperature Pulse Rate Respiratory Rate 18 Blood Pressure Pulse Oximetry Intake & Output 04/07/18 04/08/18 04/08/18 18:59 06:59 18:59 Intake Total 520 / 520 1440 / 1440 Output Total 2600 / 2600 2600 / 2600 Balance -2080 / -2080 -1160 / -1160 Weight 87 kg Intake: Oral 520 / 520 1440 / 1440 Output: Urine 2600 / 2600 2600 / 2600 Other: # Bowel Movements 1 1 Narrative: GENERAL: This is a well-nourished, well-developed patient, in no apparent distress. CARDIOVASCULAR: Regular rate and rhythm without murmurs, gallops, or rubs. RESPIRATORY: Clear to auscultation. Breath sounds equal bilaterally. No wheezes , rales, or rhonchi. GASTROINTESTINAL: Abdomen soft, non-tender, nondistended. Normal active bowel sounds NEURO: Alert & Oriented x4 to person, place, time, situation. Moves all ext x4 SKIN: Dry peeling of the skin bilateral lower extremity and feet persists but not worsened. - Urinary Catheter Management Indwelling Urethral Catheter Cath placed during this visit: yes, but has since been removed by the nurse Urethral indwelling: No Reason for continuing: Not indwelling catheter Insertion date: 03/22/18 Insertion time: 00:00 Removal date: 04/05/18 Results - Labs CBC & Chem 7: 04/06/18 10:00 04/08/18 06:07 Laboratory Results - last 24 hr 04/08/18 06:07 Sodium 140 Potassium 4.4 Chloride 104 Carbon Dioxide 22.9 Anion Gap 13 BUN 50 H Creatinine 5.32 H Estimated GFR 12 L Random Glucose 87 Calcium 9.9 Assessment and Plan - Plan 47-year-old male admitted secondary to acute renal failure and acute liver failure Dialysis to be held due to patient's improved BUN/creatinine Acute renal failure from rhabdomyolysis and drug abuse Avoid nephrotoxins Continue to monitor renal function, check BUN/creatinine today which has been trending down to 5.32 today Nephrology following Will hold off on next hemodialysis and monitor BUN/creatinine. Likely will not need long-term hemodialysis. Toxic encephalopathy/drug overdose-resolved Polysubstance abuse Cessation recommended Transaminitis Hepatitis C Liver failure Improving. Migraine headache Currently on Fioricet as needed Treat with Tylenol as needed Bilateral lower extremity weakness Rhabdomyolysis MRI of lumbar spine shows no acute pathology to explain symptoms Elevated CK 2/2 rhabdomyolysis has improved with IV fluid hydration Tinea pedalis -continue Lotrimin cream to the area twice daily Discharge Planning: Pending renal function recovery to determine discharge planning to home. Patient states that his father is sending him $1000 for him to obtain a motel room and get cleaned up here after discharge and seek drug abuse recovery help. Will refer to [facility]
--- NOTE | 2018-04-08 19:58 | P.PNNP ---
Subjective Interval history: Unsteady gait Complaining of pain in the legs Physical Exam Vital signs: Vital Signs 04/07/18 20:00 04/08/18 00:00 04/08/18 04:00 Temperature 97.5 F L 98.3 F 97.9 F Pulse Rate 99 H 91 H 89 Respiratory Rate 18 18 Blood Pressure 153/85 H 164/85 H 157/89 H Pulse Oximetry 97 97 96 04/08/18 08:00 04/08/18 08:47 04/08/18 12:00 Temperature 97.9 F 97.9 F Pulse Rate 82 121 H Respiratory Rate 14 18 14 Blood Pressure 156/87 H 162/80 H Pulse Oximetry 95 96 04/08/18 13:27 04/08/18 16:00 04/08/18 16:07 Temperature 97.1 F L Pulse Rate 91 H Respiratory Rate 20 14 18 Blood Pressure 154/90 H Pulse Oximetry 97 04/08/18 17:47 Temperature Pulse Rate Respiratory Rate 18 Blood Pressure Pulse Oximetry Intake & Output 04/08/18 04/08/18 04/09/18 06:59 18:59 06:59 Intake Total 1440 / 1440 Output Total 2600 / 2600 1100 / 1100 Balance -1160 / -1160 -1100 / -1100 Weight 87 kg Intake: Oral 1440 / 1440 Output: Urine 2600 / 2600 1100 / 1100 Other: # Voids 7 # Bowel Movements 1 2 - Constitutional no acute distress - Routine HEENT Exam Head: Present: normocephalic - Routine Neck Exam Present: supple - Routine Respiratory Exam Present: CTA bilaterally - Routine Cardiovascular Exam Present: RRR - Routine Abdominal Exam Present: soft, normoactive bowel sounds - Routine Extremities Exam Present: full ROM (Limited neuropathy) - Urinary Catheter Management Indwelling Urethral Catheter Cath placed during this visit: yes, but has since been removed by the nurse Urethral indwelling: No Reason for continuing: Not indwelling catheter Insertion date: 03/22/18 Insertion time: 00:00 Removal date: 04/05/18 Assessment and Plan - Assessment (1) Acute kidney injury Code(s): N17.9 - Acute kidney failure, unspecified Status: Acute - Plan . Patient is doing well increased urinary output hemodialysis done earlier but cut short by the patient as having headache Patient creatinine is declining he has resolving acute renal failure it is resolving rhabdomyolysis Stop hemodialysis Monitor BMP DC Vas-Cath by Friday and initiate discharge planning
[2018-04-09] MEDS: amLODIPine 10 MG Tablet PO SCH (09:17)
[2018-04-09] MEDS: Senna/Docusate Sodium 8.6/50 MG Tablet PO SCH ×2 (09:17→20:36)
[2018-04-09] MEDS: Calcium Carbonate 500 MG Tablet PO SCH ×2 (09:17→20:36)
[2018-04-09] MEDS: Clotrimazole 1% Cream 15 GM Tube TOPICAL SCH ×2 (09:18→20:36)
[2018-04-09] MEDS: Gabapentin 100 MG Capsule PO SCH ×3 (09:18→17:45)
--- NOTE | 2018-04-09 10:07 | P.PNIM ---
Subjective Interval history: States that he wanted labs come back later to draw his blood. At this time, he is calling local [facility] this for discharge planning as he is not going back to previous place he was staying at. Physical Exam Vital signs: Vital Signs 04/08/18 12:00 04/08/18 13:27 04/08/18 16:00 Temperature 97.9 F 97.1 F L Pulse Rate 121 H 91 H Respiratory Rate 14 20 14 Blood Pressure 162/80 H 154/90 H Pulse Oximetry 96 97 04/08/18 16:07 04/08/18 17:47 04/08/18 20:00 Temperature 97.9 F Pulse Rate 119 H Respiratory Rate 18 18 20 Blood Pressure 171/93 H Pulse Oximetry 04/08/18 21:32 04/09/18 00:00 04/09/18 04:00 Temperature 98.6 F 97.1 F L Pulse Rate 108 H 98 H Respiratory Rate 16 20 16 Blood Pressure 175/83 H 157/87 H Pulse Oximetry 97 96 Intake & Output 04/08/18 04/09/18 04/09/18 18:59 06:59 18:59 Intake Total 960 / 960 Output Total 1100 / 1100 1500 / 1500 Balance -1100 / -1100 -540 / -540 Weight 86.2 kg Intake: Oral 960 / 960 Output: Urine 1100 / 1100 1500 / 1500 Other: # Voids 7 # Bowel Movements 2 0 Narrative: GENERAL: This is a well-nourished, well-developed patient, in no apparent distress. CARDIOVASCULAR: Regular rate and rhythm without murmurs, gallops, or rubs. RESPIRATORY: Clear to auscultation. Breath sounds equal bilaterally. No wheezes , rales, or rhonchi. GASTROINTESTINAL: Abdomen soft, non-tender, nondistended. Normal active bowel sounds NEURO: Alert & Oriented x4 to person, place, time, situation. Moves all ext x4 SKIN: Dry peeling of the skin bilateral lower extremity and feet persists but not worsened. - Urinary Catheter Management Indwelling Urethral Catheter Cath placed during this visit: yes, but has since been removed by the nurse Urethral indwelling: No Reason for continuing: Not indwelling catheter Insertion date: 03/22/18 Insertion time: 00:00 Removal date: 04/05/18 Results - Labs CBC & Chem 7: 04/06/18 10:00 04/08/18 06:07 Assessment and Plan - Plan 47-year-old male admitted secondary to acute renal failure and acute liver failure Dialysis to be held due to patient's improved BUN/creatinine Acute renal failure from rhabdomyolysis and drug abuse Avoid nephrotoxins Continue to monitor renal function, check BUN/creatinine today which has been trending down to 5.32 yesterday, today's BUN/creatinine pending Nephrology following Will hold off on next hemodialysis and monitor BUN/creatinine. Likely will not need long-term hemodialysis. Toxic encephalopathy/drug overdose-resolved Polysubstance abuse Cessation recommended Transaminitis Hepatitis C Liver failure Improving. Migraine headache Currently on Fioricet as needed Treat with Tylenol as needed Bilateral lower extremity weakness Rhabdomyolysis MRI of lumbar spine shows no acute pathology to explain symptoms Elevated CK 2/2 rhabdomyolysis has improved with IV fluid hydration Tinea pedalis -continue Lotrimin cream to the area twice daily Discharge Planning: Pending renal function recovery to determine discharge planning to home. Patient states that his father is sending him $1000 for him to obtain a motel room and get cleaned up here after discharge and seek drug abuse recovery help. Will refer to [facility]. Possibly discharge in the next 1-2 days.
[2018-04-09 13:50] LABS: Carbon Dioxide 21.4 meq/L (21.0-32.0); Potassium 4.6 meq/L (3.5-5.1)
--- NOTE | 2018-04-09 14:52 | P.PNNP ---
Subjective Interval history: Patient complains of peripheral neuropathy he wants to go outside states he feels depressed his best friend due to drug OD Physical Exam Vital signs: Vital Signs 04/08/18 16:00 04/08/18 16:07 04/08/18 17:47 Temperature 97.1 F L Pulse Rate 91 H Respiratory Rate 14 18 18 Blood Pressure 154/90 H Pulse Oximetry 97 04/08/18 20:00 04/08/18 21:32 04/09/18 00:00 Temperature 97.9 F 98.6 F Pulse Rate 119 H 108 H Respiratory Rate 20 16 20 Blood Pressure 171/93 H 175/83 H Pulse Oximetry 97 04/09/18 04:00 04/09/18 08:00 Temperature 97.1 F L 97.4 F L Pulse Rate 98 H 100 H Respiratory Rate 16 20 Blood Pressure 157/87 H 164/102 H Pulse Oximetry 96 97 Intake & Output 04/08/18 04/09/18 04/09/18 18:59 06:59 18:59 Intake Total 960 / 960 Output Total 1100 / 1100 1500 / 1500 Balance -1100 / -1100 -540 / -540 Weight 86.2 kg Intake: Oral 960 / 960 Output: Urine 1100 / 1100 1500 / 1500 Other: # Voids 7 # Bowel Movements 2 0 - Constitutional no acute distress - Routine HEENT Exam Head: Present: normocephalic - Routine Neck Exam Present: supple - Routine Respiratory Exam Present: CTA bilaterally - Routine Cardiovascular Exam Present: RRR - Routine Abdominal Exam Present: soft, normoactive bowel sounds - Routine Extremities Exam Present: full ROM - Urinary Catheter Management Indwelling Urethral Catheter Cath placed during this visit: yes, but has since been removed by the nurse Urethral indwelling: No Reason for continuing: Not indwelling catheter Insertion date: 03/22/18 Insertion time: 00:00 Removal date: 04/05/18 Assessment and Plan - Assessment (1) Acute kidney injury Code(s): N17.9 - Acute kidney failure, unspecified Status: Acute - Plan . Patient is doing well increased urinary output Patient creatinine is declining he has resolving acute renal failure it is resolving rhabdomyolysis off hemodialysis creatinine declined on its own to 5.2 Monitor BMP DC Vas-Cath by Friday and initiate discharge planning
[2018-04-09] MEDS: Butalbital/APAP/Caff 50/325/40 MG Tablet PO PRN (23:14)
[2018-04-10 03:48] LABS: Calcium 9.5 mg/dL (8.5-10.1); Carbon Dioxide 20.9 meq/L (21.0-32.0); Potassium 4.6 meq/L (3.5-5.1)
--- NOTE | 2018-04-10 09:01 | P.DS ---
Date of admission: 03/17/18 18:59 Primary care physician: No Primary Care Physician Anticipated date of discharge: 04/10/18 Brief History from admission: 48-year-old white male was admitted for acute renal failure and acute liver failure. DS: Diagnosis - Discharge Diagnosis (1) Acute renal failure (ARF) Status: Resolved Diagnosis: Principal (2) Acute liver failure Status: Resolved Diagnosis: Principal (3) Rhabdomyolysis Status: Resolved Diagnosis: Principal (4) Hypertension Status: Chronic Diagnosis: Secondary DS: Summary Hospital Course: These are the medical issues addressed during this hospitalization: 47-year-old male admitted secondary to acute renal failure and acute liver failure Acute renal failure from rhabdomyolysis and drug abuse -patient received hemodialysis during hospitalization and was able to have recovery of his renal function without needing long-term hemodialysis. Avoid nephrotoxins Continue to monitor renal function, check BUN/creatinine today which has been trending down to 4.99 Nephrology following will not need long-term hemodialysis. Toxic encephalopathy/drug overdose-resolved Polysubstance abuse Cessation recommended, refer to [facility] Transaminitis Hepatitis C Liver failure Improving. Migraine headache Currently on Fioricet as needed Treat with Tylenol as needed Bilateral lower extremity weakness Rhabdomyolysis MRI of lumbar spine shows no acute pathology to explain symptoms Elevated CK 2/2 rhabdomyolysis has improved with IV fluid hydration Gabapentin also provided Tinea pedalis -continue Lotrimin cream to the area twice daily Patient has gained maximum benefit from hospitalization is ready to be discharged to home - Time Spent with Patient Total time spent providing and/or coordinating discharge services: Less than 30 minutes Exam Vital signs: Vital Signs 04/09/18 12:00 04/09/18 16:00 04/09/18 20:00 Temperature 97.8 F 97.9 F 98.0 F Pulse Rate 97 H 104 H 93 H Respiratory Rate 20 20 20 Blood Pressure 175/93 H 146/76 H 136/81 Pulse Oximetry 98 98 96 04/09/18 23:17 04/10/18 00:00 04/10/18 04:00 Temperature 98.0 F 97.7 F Pulse Rate 98 H 100 H Respiratory Rate 20 20 20 Blood Pressure 156/74 H 136/87 Pulse Oximetry 96 97 Intake & Output 04/09/18 04/10/18 04/10/18 18:59 06:59 18:59 Intake Total 960 / 960 240 / 240 Output Total 300 / 300 500 / 500 Balance 660 / 660 -260 / -260 Weight 87.5 kg Intake: Oral 960 / 960 240 / 240 Output: Urine 300 / 300 500 / 500 Other: # Voids 4 # Bowel Movements 2 0 Narrative: GENERAL: This is a well-nourished, well-developed patient, in no apparent distress. Right chest wall: Vas-Cath in place CARDIOVASCULAR: Regular rate and rhythm without murmurs, gallops, or rubs. RESPIRATORY: Clear to auscultation. Breath sounds equal bilaterally. No wheezes , rales, or rhonchi. GASTROINTESTINAL: Abdomen soft, non-tender, nondistended. Normal active bowel sounds MUSCULOSKELETAL: Extremities without clubbing, cyanosis, or edema. NEURO: Alert & Oriented x4 to person, place, time, situation. Moves all ext x4 Results Procedures completed during hospitalization: 03/21 Vas-Cath placement Labs on day of discharge: Labs from last 24 hours 04/10/18 04/09/18 02:42 12:29 Sodium 139 140 Potassium 4.6 4.6 Chloride 108 H 106 Carbon Dioxide 20.9 L 21.4 Anion Gap 10 13 BUN 68 H 61 H Creatinine 4.99 H 5.22 H Estimated GFR 13 L 12 L Random Glucose 122 H 87 Calcium 9.5 10.0 - Impressions ITS Impressions Head CT 04/01/18 21:14 CONCLUSION: 1. No acute intracranial abnormality. Discharge Plan - Discharge Disposition Patient Disposition: Discharge Home - Discharge Condition Condition: Good - Discharge Details Anticipated Discharge Date: 04/10/18 - Physicians Team Primary Care Provider: Primary Care Kathryn Lennon Attending Provider: Kayy Christiansen Other Providers: Brenna Recio MD - Rxs /Orders / Referrals /Forms Prescriptions: New amlodipine [Norvasc] 10 mg Tablet 10 mg PO DAILY Qty: 30 RF: 0 clotrimazole 1 % Cream 1 applicatio Topical BID Qty: 1 RF: 0 gabapentin 100 mg Capsule 100 mg PO TID Qty: 90 RF: 0 hydralazine 100 mg Tablet 100 mg PO TID Qty: 90 RF: 0 tamsulosin 0.4 mg Capsule,Extended Release 24hr 0.4 mg PO DAILY Qty: 30 RF: 0 No Action No Known Home Medications Referrals: Primary Care Kathryn Lennon [Primary Care Provider] - See Instructions
[2018-04-10] MEDS: Calcium Carbonate 500 MG Tablet PO SCH (09:21)
[2018-04-10] MEDS: Senna/Docusate Sodium 8.6/50 MG Tablet PO SCH (09:21)
[2018-04-10] MEDS: amLODIPine 10 MG Tablet PO SCH (09:21)
[2018-04-10] MEDS: Clotrimazole 1% Cream 15 GM Tube TOPICAL SCH (09:22)
[2018-04-10] MEDS: Gabapentin 100 MG Capsule PO SCH ×2 (09:23→14:08)
[2018-04-10 09:25] VITALS: RESP 18
[2018-04-10 10:42] VITALS: O2SAT 99
[2018-04-10 15:32] VITALS: BP 174/82; PULSE 92; TEMP 97
== END 2018-04-10 14:51 | disposition home or self-care (01) ==
LOC: N04 18:59
PROVIDERS: ADMIT Family Medicine; ATTEND Family Medicine